=== PATIENT | male | born 1955 | race Caucasian/White ===

== ENCOUNTER 2023-04-14 03:21 | Outpatient (RCR) | payer MEDICARE, OTHER, SELFPAY ==
[2023-04-14] MEDS: Normal Saline Flush 10 ML SYR IVP (07:47)
[2023-04-14 08:04] LABS: Abs Immature Grans 0.13 10^3/uL (0.0-0.06); Absolute Basophil Count 0.07 10^3/uL (0.0-0.2); Absolute Eosinophil Count 0.63 10^3/uL (0.0-0.7); Absolute Lymphocyte Count 1.89 10^3/uL (1.2-3.4); Absolute Monocyte Count 1.19 10^3/uL (0.1-0.8); Absolute Neutrophil Count 8.06 10^3/uL (1.2-6.7); Basophils % 0.6; Eosinophils % 5.3; HCT 32.9 % (40.0-50.0); HGB 10.9 g/dL (13.5-17.5); Immature Grans % 1.1; Lymphocytes % 15.8; MCH 28.5 pg (27.0-33.0); MCHC 33.1 % (32.0-36.0); MCV 86 fL (80-95); MPV 9.2 fL (8.0-11.0); Monocytes % 9.9; Neutrophils % 67.3; Platelet Count 203 10^3/uL (130-400); RBC 3.83 10^6/uL (4.36-5.78); RDW-SD 46.4 fL; WBC 11.97 10^3/uL (4.4-10.8)
[2023-04-14 08:19] LABS: ALT 27 U/L (16-63); AST 16 U/L (15-37); Albumin 3.3 g/dL (3.4-5.0); Alkaline Phosphatase 94 U/L (46-116); Anion Gap 6.5 mmol/L (3-11); BUN 19 mg/dL (7-18); Bilirubin, Total 0.3 mg/dL (0.2-1.0); CO2 28.5 mmol/L (21.0-32.0); CREATININE 0.8 mg/dL (0.70-1.30); Calcium 8.8 mg/dL (8.5-10.1); Chloride 102 mmol/L (98-107); Glucose 119 mg/dL (74-106); Magnesium 1.7 mg/dL (1.8-2.4); Potassium 4.1 mmol/L (3.5-5.1); Sodium 137 mmol/L (136-145); Total Protein 7.3 g/dL (6.4-8.2)
== END 2023-04-14 23:59 | disposition home or self-care (01) ==
LOC: INF 03:21
PROVIDERS: PCP Family Medicine Adult Medicine; Visit Provider Family Medicine Adult Medicine
DX: C34.92 Malignant neoplasm of unspecified part of left bronchus or lung (principal); Z45.2 Encounter for adjustment and management of vascular access device
CPT/HCPCS: 36591; 80053; 83735; 85025

== ENCOUNTER 2023-05-12 02:21 | Outpatient (RCR) | payer MEDICARE, OTHER, SELFPAY ==
[2023-05-03 09:09] LABS: Absolute Basophil Count 0.02 10^3/uL (0.0-0.2); Absolute Eosinophil Count 0.07 10^3/uL (0.0-0.7); Absolute Lymphocyte Count 0.53 10^3/uL (1.2-3.4); Absolute Neutrophil Count 0.93 10^3/uL (1.2-6.7); Basophils % 0.9; HCT 30.8 % (40.0-50.0); HGB 10.6 g/dL (13.5-17.5); Immature Grans % 4.3; Lymphocytes % 22.6; MCH 29.2 pg (27.0-33.0); MCHC 34.4 % (32.0-36.0); MCV 85 fL (80-95); MPV 8.6 fL (8.0-11.0); Monocytes % 29.8; Neutrophils % 39.4; Platelet Count 166 10^3/uL (130-400); RBC 3.63 10^6/uL (4.36-5.78); RDW 14.9 % (11.8-14.1); RDW-SD 45.9 fL; WBC 2.35 10^3/uL (4.4-10.8)
[2023-05-03] MEDS: Normal Saline Flush 10 ML SYR IVP (09:20)
[2023-05-03 09:26] LABS: ALT 22 U/L (16-63); AST 14 U/L (15-37); Albumin 3.2 g/dL (3.4-5.0); Alkaline Phosphatase 79 U/L (46-116); Anion Gap 6.1 mmol/L (3-11); BUN 14 mg/dL (7-18); Bilirubin, Total 0.3 mg/dL (0.2-1.0); CO2 29.9 mmol/L (21.0-32.0); CREATININE 0.7 mg/dL (0.70-1.30); Calcium 8.9 mg/dL (8.5-10.1); Chloride 100 mmol/L (98-107); Estimated GFR 99.74 (mL/min/1.73m2); Glucose 130 mg/dL (74-106); Magnesium 1.6 mg/dL (1.8-2.4); Potassium 3.4 mmol/L (3.5-5.1); Sodium 136 mmol/L (136-145); Total Protein 7.1 g/dL (6.4-8.2)
[2023-05-03 09:34] LABS: Diff Comment Diff Reviewed; RBC Morphology Normal
[2023-05-12] MEDS: Normal Saline Flush 10 ML SYR IVP (07:48)
[2023-05-12 08:07] LABS: Abs Immature Grans 0.05 10^3/uL (0.0-0.06); Absolute Basophil Count 0.03 10^3/uL (0.0-0.2); Absolute Eosinophil Count 0.07 10^3/uL (0.0-0.7); Absolute Lymphocyte Count 0.63 10^3/uL (1.2-3.4); Absolute Monocyte Count 0.65 10^3/uL (0.1-0.8); Absolute Neutrophil Count 2.97 10^3/uL (1.2-6.7); Basophils % 0.7; Eosinophils % 1.6; HCT 31.6 % (40.0-50.0); HGB 10.6 g/dL (13.5-17.5); Immature Grans % 1.1; Lymphocytes % 14.3; MCH 29.2 pg (27.0-33.0); MCHC 33.5 % (32.0-36.0); MCV 87 fL (80-95); Monocytes % 14.8; Neutrophils % 67.5; Platelet Count 171 10^3/uL (130-400); RBC 3.63 10^6/uL (4.36-5.78); RDW 15.5 % (11.8-14.1); RDW-SD 48.9 fL
[2023-05-12 08:29] LABS: ALT 21 U/L (16-63); AST 14 U/L (15-37); Albumin 3.2 g/dL (3.4-5.0); Alkaline Phosphatase 78 U/L (46-116); Anion Gap 9.1 mmol/L (3-11); BUN 18 mg/dL (7-18); Bilirubin, Total 0.3 mg/dL (0.2-1.0); CO2 27.9 mmol/L (21.0-32.0); CREATININE 0.7 mg/dL (0.70-1.30); Calcium 8.7 mg/dL (8.5-10.1); Chloride 103 mmol/L (98-107); Estimated GFR 99.74 (mL/min/1.73m2); Glucose 148 mg/dL (74-106); Magnesium 1.6 mg/dL (1.8-2.4); Potassium 3.8 mmol/L (3.5-5.1); Sodium 140 mmol/L (136-145)
== END 2023-05-14 23:59 | disposition home or self-care (01) ==
LOC: INF 02:21
PROVIDERS: Internal Medicine Medical Oncology; PCP Family Medicine Adult Medicine; Visit Provider Family Medicine Adult Medicine
DX: C34.92 Malignant neoplasm of unspecified part of left bronchus or lung (principal); Z45.2 Encounter for adjustment and management of vascular access device
CPT/HCPCS: 36591; 80053; 83735; 85025

== ENCOUNTER 2023-06-07 04:01 | Outpatient (RCR) | payer MEDICARE, OTHER, SELFPAY ==
[2023-06-07 09:07] LABS: Abs Immature Grans 0.16 10^3/uL (0.0-0.06); Absolute Basophil Count 0.06 10^3/uL (0.0-0.2); Absolute Eosinophil Count 0.09 10^3/uL (0.0-0.7); Absolute Lymphocyte Count 1.01 10^3/uL (1.2-3.4); Absolute Monocyte Count 1.03 10^3/uL (0.1-0.8); Absolute Neutrophil Count 3.89 10^3/uL (1.2-6.7); Eosinophils % 1.4; HCT 32.5 % (40.0-50.0); HGB 11.1 g/dL (13.5-17.5); Immature Grans % 2.6; Lymphocytes % 16.2; MCH 29.8 pg (27.0-33.0); MCHC 34.2 % (32.0-36.0); MCV 87 fL (80-95); MPV 8.5 fL (8.0-11.0); Monocytes % 16.5; Neutrophils % 62.3; Platelet Count 218 10^3/uL (130-400); RBC 3.72 10^6/uL (4.36-5.78); RDW 15.8 % (11.8-14.1); RDW-SD 50.4 fL; WBC 6.24 10^3/uL (4.4-10.8)
[2023-06-07] MEDS: Normal Saline Flush 10 ML SYR IVP (09:13)
[2023-06-07 09:34] LABS: ALT 25 U/L (16-63); AST 15 U/L (15-37); Albumin 3.5 g/dL (3.4-5.0); Alkaline Phosphatase 85 U/L (46-116); Anion Gap 7.8 mmol/L (3-11); BUN 11 mg/dL (7-18); Bilirubin, Total 0.3 mg/dL (0.2-1.0); CO2 29.2 mmol/L (21.0-32.0); CREATININE 0.8 mg/dL (0.70-1.30); Calcium 9.2 mg/dL (8.5-10.1); Chloride 101 mmol/L (98-107); Glucose 103 mg/dL (74-106); Magnesium 1.7 mg/dL (1.8-2.4); Potassium 4.1 mmol/L (3.5-5.1); Sodium 138 mmol/L (136-145); Total Protein 7.5 g/dL (6.4-8.2)
== END 2023-06-14 23:59 | disposition home or self-care (01) ==
LOC: INF 04:01
PROVIDERS: PCP Family Medicine Adult Medicine; Visit Provider Family Medicine Adult Medicine
DX: C34.92 Malignant neoplasm of unspecified part of left bronchus or lung (principal); Z45.2 Encounter for adjustment and management of vascular access device
CPT/HCPCS: 36591; 80053; 83735; 85025

== ENCOUNTER 2023-09-20 09:31 | Outpatient (RCR) | payer MEDICARE, OTHER, SELFPAY ==
--- OUTSIDE RECORDS SUMMARY | 2023-09-20 09:46 | XMS_ITS | Continuity of Care Document ---
Author Name Unknown Organization [facility] Address [address] [place] [address] Care Team Providers Care Ob Tech Name Role Phone Doimnique Aparicio Primary Care Physician Encounter LTTL_DE FIN NBR [id number] Date(s): 03/08/23 - 03/08/23 [facility] [address] [place], [place] [address] Discharge Disposition: Home or Self Care Attending Physician: GUEVARA KHAN M.D. Admitting Physician: GUEVARA KHAN M.D. Allergies, Adverse Reactions, Alerts Substance Reaction Severity Status penicillins Moderate Active Assessment and Plan Future Appointments Medications citalopram 20 mg oral tablet 20 mg = 1 tab, Oral, Daily Start Date: 09/07/22 Status: Ordered hydroCHLOROthiazide 25 mg oral tablet 25 mg = 1 tab, Oral, Daily Start Date: 09/07/22 Status: Ordered ibuprofen 800 mg oral tablet 800 mg = 1 tab, Oral, TID Start Date: 09/07/22 Status: Ordered leuprolide 45 mg/6 months intramuscular injection, extended release 45 mg =, IM, every 6 mo Start Date: 09/07/22 Status: Ordered Multi Vitamin+ 1 tab, Oral, Daily Start Date: 09/07/22 Status: Ordered tamsulosin 0.4 mg oral capsule 0.8 mg = 2 cap, Oral, Daily Start Date: 09/07/22 Status: Ordered Results Laboratory List Name Date CBC w/ Diff 03/08/23 Comprehensive Metabolic Panel 03/08/23 PSA Diagnostic 03/08/23 Testosterone Level Total 03/08/23 Automated Diff 03/08/23 Most recent to oldest [Reference Range]: 1 WBC [4.8-10.8 K/mcL] 10.4 K/mcL (03/08/23 9:33 AM) RBC [4.20-6.10 Million/mcL] 5.02 Million /mcL (03/08/23 9:33 AM) Neutro Auto [42.2-75.2 %] 80.2 % *HI* (03/08/23 9:33 AM) Lymph Auto [20.5-51.1 %] 10.2 % *LOW* (03/08/23: AM) Mobile Auto [1.7-9.3 %] 8.1 % (03/08/23 9: AM) Basophil Auto [0.0-0.8 %] 0.3 % (03/08/23 9: AM) BUN [8-26 mg/dL] 12 mg/dL (03/08/23: AM) Glucose Level [74-106 mg/dL] 115 mg/dL *HI* (03/08/23 9: AM) Potassium Level [3.5-5.1 mmol/L] 3.4 mmo l/L *LOW* (03/08/23: AM) Baso Absolute [0.0-0.2 K/mcL] 0.0 K/mcL (03/08/23: AM) MCV [80.0-94.0 fL] 80.5 fL (03/08/23: AM) Testosterone Total [175-781 ng/dL] 25 ng /dL *LOW* (03/08/23 9: AM) AST [15-41 IntlUnit/L] 20 IntlUnit/L (03/08/23 9:33 AM) ALT [17-63 IntlUnit/L] 22 IntlUnit/L (03/08/23 9:33 AM) MCHC [32.0-36.0 g/dL] 35.9 g/dL (03/08/23 9: AM) Osmolality [275-295 mOsm/kg] 239 mOsm/kg *LOW* (03/08/23: AM) Sodium Level [134-143 mmol/L] 118 mmol/L 1 *CRIT* (03/08/23 9: AM) Lymph Absolute [1.2-3.4 K/mcL] 1.1 K/mcL *LOW* (03/08/23 9:33 AM) Hct [42.0-52.0 %] 40.4 % *LOW* (03/08/23: AM) Calcium Level [8.9-10.3 mg/dL] 9.6 mg/dL (03/08/23:33 AM) Mobile Absolute [0.1-0.6 K/mcL] 0.8 K/mcL *HI* (03/08/23: AM) Albumin Level [3.5-5.0 g/dL] 4.1 g/dL (03/08/23: AM) Protein Total [6.5-8.1 g/dL] 7.9 g/dL (03/08/23 9: AM) MCH [27.0-31.0 pg] 28.9 pg (03/08/23: AM) Neutro Absolute [1.4-6.5 K/mcL] 8.3 K/mc L *HI* (03/08/23 9: AM) Bilirubin Total [0.2-1.2 mg/dL] 0.6 mg/d L (03/08/23 9: AM) Hgb [14.0-18.0 g/dL] 14.5 g/dL (03/08/23 9:33 AM) Alk Phos [38-130 IntlUnit/L] 79 IntlUnit /L (03/08/23:33 AM) MPV [7.4-10.4 fL] 8.9 fL (03/08/23 9:33 AM) Platelets [130-400 K/mcL] 222 K/mcL (03/08/23:33 AM) CO2 [22-32 mmol/L] 28 mmol/L (03/08/23 9:33 AM) Eos Absolute [0.0-0.2 K/mcL] 0.1 K/mcL (03/08/23 9:33 AM) PSA Total Diagnostic [<=4.000 ng/mL] 0.0 22 ng/mL (03/08/23: AM) Chloride Level [98-111 mmol/L] 80 mmol/L *LOW* (03/08/23 9: AM) RDW-CV [11.5-14.5 %] 13.1 % (03/08/23 9:33 AM) A/G Ratio 1.1 *NA* (03/08/23 9:33 AM) BUN/Creat Ratio [8.0-20.0] 17.4 (03/08/23 9:33 AM) Globulin 3.8 *NA* (03/08/23 9:33 AM) Imm Gran Absolute 0.03 *NA* (03/08/23 9:33 AM) Imm Gran Auto [0.0-0.5 %] 0.3 % (03/08/23 9:33 AM) Creatinine Level [0.61-1.24 mg/dL] 0.69 mg/dL (03/08/23 9:33 AM) Anion Gap [3.0-12.0] 10.0 (03/08/23 9:33 AM) Eos, Auto [0.00-3.00 %] 0.90 % (03/08/23 9:33 AM) eGFR CKD-EPI [>=60 mL/min/1.73 m2] 101 m L/min/1.73 m2 (03/08/23 9:33 AM) 1Result Comment: Called & read back by Nicole Bruce_ at 1000_WR result verified by repeat analysis Social History Social History Type Response Tobacco Former tobacco user Tobacco Use:. Sex Patient Care team information Care Team Personnel Name: ILANA Rhoades Position: Physician Member Role: Primary Care Physician Address: Address: [address] [place] [address] Name: Guevara Khan MD Position: Physician Member Role: Informed Provider Address: Address: [address] [address] Care Team Related Persons Name: HELDER ECHEVERRIA
--- OUTSIDE RECORDS SUMMARY | 2023-09-20 09:46 | XMS_ITS | Continuity of Care Document ---
Author Name Unknown Organization [facility] Address [address] [place] [address] Care Team Providers Care Sports Physiologist Name Role Phone FATMATA JACKSON Primary Care Physician Encounter LTTL_ID FIN NBR [id number] Date(s): 09/07/23 - 09/07/23 [facility] [address] [place] [address]- [place] Discharge Disposition: Home or Self Care Attending Physician: Guevara Ibarra MD Admitting Physician: Guevara Ibarra MD Referring Physician: XIOMARA BROWN APRN Allergies, Adverse Reactions, Alerts Substance Reaction Severity Status penicillins 1 Anaphylactic reaction Severe Activ e 1pt reprots throat closing long time ago but allergy confirmed with allergy testing about 20 years ago. Assessment and Plan Future Appointments Medications amLODIPine 10 mg oral tablet 10 mg = 1 tab, Oral, Daily, # 30 tab, 0 Refill(s) Start Date: 07/13/23 Status: Ordered hydrOXYzine pamoate 25 mg oral capsule 25 mg = 1 cap, Oral, every night at bedtime, 0 Refill(s) Start Date: 07/13/23 Status: Ordered losartan 100 mg oral tablet 50 mg =, Oral, Daily, 0 Refill(s) Start Date: 06/23/23 Status: Ordered Multi Vitamin+ 1 tab, Oral, Daily Start Date: 09/07/22 Status: Ordered polyethylene glycol 3350 oral powder for reconstitution 17 g, Oral, Daily, PRN constipation, # 510 g, 0 Refill(s) Start Date: 07/13/23 Status: Ordered potassium chloride 10 mEq oral capsule, extended release 20 mEq = 2 cap, Oral, Daily Start Date: 09/07/23 Status: Ordered tamsulosin 0.4 mg oral capsule 0.8 mg = 2 cap, Oral, Daily Start Date: 09/07/22 Status: Ordered Problem List Condition Confirmation Course Effective Dates Status Health St atus Informant Abdominal discomfort Confirmed Active CA - Cancer of prostate 1 Confirmed Active h/o Cervical fracture Confirmed Active Chemotherapy Confirmed Active Constipation Confirmed Active Depression Confirmed Active Hemoptysis Confirmed Active Hydrocele Confirmed Active Hyponatremia Confirmed Active Dyspepsia Confirmed Active Left inguinal hernia Confirmed Active Anorexia Confirmed Active Nausea Confirmed Active Perianal abscess Confirmed Active Radiation Confirmed Active Shingles Confirmed Active Small cell lung cancer Confirmed Active 1metastatic recurrence 2018 Procedures Procedure Date Related Diagnosis Body Site Status Bronchoscopy 2022 Completed Right hydrocelectomy 03/19/15 Comp leted Incision of perianal abscess 2014 Completed Repair of left inguinal hernia 06/28/14 Completed Arthroscopy of shoulder 1 2000 Completed Cervical [id number] 1990 Com pleted Arthroscopy of knee 2 Com pleted 1left 2right Vital Signs Most recent to oldest [Reference Range]: 1 Temperature Temporal Artery [36-38 Deg C ] 37 Deg C (09/07/23 8:29 AM) Peripheral Pulse Rate [60-100 bpm] 108 b pm *HI* (09/07/23 8:29 AM) Respiratory Rate [12-24 br/min] 20 br/mi n (09/07/23 8:29 AM) Blood Pressure [90-140/60-90 mmHg] 145/7 7mmHg *HI* (09/07/23 8:29 AM) Mean Arterial Pressure, Cuff [65-140 mmH g] 100 mmHg (09/07/23 8:29 AM) Social History Social History Type Response Tobacco Former tobacco user Tobacco Use:. Sex Patient Care team information Care Team Personnel Name: FATMATA JACKSON Position: No Access Member Role: Primary Care Physician Address: Address: [address] [place] [id number]- Name: Guevara Ibarra MD Position: Physician Member Role: Informed Provider Address: Address: [address] [address]- Care Team Related Persons Name: HELDER ECHEVERRIA
--- OUTSIDE RECORDS SUMMARY | 2023-09-20 09:46 | XMS_ITS | Patient Health Record ---
Author Name Unknown Organization [facility] Address [address] [place] [address] Care Team Providers Care Roto Rooter Operator Name Role Phone SANJEEV CARVER Primary Care Provider [phone] FATMATA MARIE Unavailable [phone] DAVON ALVARADO Unavailable [phone] ALLERGIES Allergen (clinical drug ingredient) Drug/Non Drug Allergy documented on EMR Reaction Allergy Type Onset Date Status Penicillin G Benzathine Unknown Drug Allergy Active RESULTS Component Value Reference Range Notes CBC (INCLUDES DIFF/PLT) Reviewed date:05/31/2023 11:00:09 AM Interpretation: Performing Lab:NL1, [facility], [address] [place] [address], [phone] Tamir Licona M.D. Notes/Report: Received Date: [id number] WHITE BLOOD CELL COUNT 1.7 3.8-10.8 Thousand/ uL RED BLOOD CELL COUNT 3.13 4.20-5.80 Million/uL HEMOGLOBIN 9.3 13.2-17.1 g/dL HEMATOCRIT 28.3 38.5-50.0 % MCV 90.4 80.0-100.0 fL MCH 29.7 27.0-33.0 pg MCHC 32.9 32.0-36.0 g/dL RDW 16.3 11.0-15.0 % PLATELET COUNT 93 140-400 Thousand/uL MPV 10.2 7.5-12.5 fL ABSOLUTE NEUTROPHILS 680 7950-0503 cells/uL ABSOLUTE LYMPHOCYTES 524 217-6573 cells/uL ABSOLUTE MONOCYTES 350 200-950 cells/uL ABSOLUTE EOSINOPHILS 90 15-500 cells/uL ABSOLUTE BASOPHILS 10 0-200 cells/uL NEUTROPHILS 40 LYMPHOCYTES 33.5 MONOCYTES 20.6 EOSINOPHILS 5.3 BASOPHILS 0.6 COMPREHENSIVE METABOLIC PANE L Reviewed date:05/31/2023 08:47:08 AM Interpretation: Performing Lab:NL1, [facility], [address] [place] [address], [phone] Tamir Licona M.D. Notes/Report: Received Date: [id number] GLUCOSE 104 65-99 mg/dL Fasting reference interval For someone without known diabetes, a glucose value between 100 and 125 mg/dL is consistent with prediabetes and should be confirmed with a follow-up test. UREA NITROGEN (BUN) 17 7-25 mg/dL CREATININE 0.78 0.70-1.35 mg/dL EGFR 97 > OR = 60 mL/min/1.73m2 The eGFR is based on the CKD-EPI 2020 equation. To calculate the new eGFR from a previous Creatinine or Cystatin C result, go to https://www.kidney.org /professionals/ kdoqi/gfr%5Fcalculator BUN/CREATININE RATIO NOT APPLICABLE 6-22 (calc) SODIUM 136 135-146 mmol/L POTASSIUM 4.0 3.5-5.3 mmol/L CHLORIDE 102 98-110 mmol/L CARBON DIOXIDE 25 20-32 mmol/L CALCIUM 9.1 8.6-10.3 mg/dL PROTEIN, TOTAL 6.6 6.1-8.1 g/dL ALBUMIN 3.7 3.6-5.1 g/dL GLOBULIN 2.9 1.9-3.7 g/dL (calc) ALBUMIN/GLOBULIN RATIO 1.3 1.0-2.5 (calc) BILIRUBIN, TOTAL 0.3 0.2-1.2 mg/dL ALKALINE PHOSPHATASE 65 35-144 U/L AST 12 10-35 U/L ALT 13 9-46 U/L COMPREHENSIVE METABOLIC PANE L Reviewed date:03/30/2023 08:47:29 AM Interpretation: Performing Lab:NL1, [facility], [address] [place] [address], [id number] Tamir Licona M.D. Notes/Report: Received Date: [id number] GLUCOSE 94 65-99 mg/dL Fasting reference interval UREA NITROGEN (BUN) 22 7-25 mg/dL CREATININE 0.88 0.70-1.35 mg/dL Verified by repeat analysis. EGFR 93 > OR = 60 mL/min/1.73m2 The eGFR is based on the CKD-EPI 2020 equation. To calculate the new eGFR from a previous Creatinine or Cystatin C result, go to https://www.kidney.org /professionals/ kdoqi/gfr%5Fcalculator BUN/CREATININE RATIO NOT APPLICABLE 6-22 (calc) SODIUM 136 135-146 mmol/L POTASSIUM 3.7 3.5-5.3 mmol/L CHLORIDE 98 98-110 mmol/L CARBON DIOXIDE 27 20-32 mmol/L CALCIUM 9.6 8.6-10.3 mg/dL PROTEIN, TOTAL 6.4 6.1-8.1 g/dL ALBUMIN 3.7 3.6-5.1 g/dL GLOBULIN 2.7 1.9-3.7 g/dL (calc) ALBUMIN/GLOBULIN RATIO 1.4 1.0-2.5 (calc) BILIRUBIN, TOTAL 0.4 0.2-1.2 mg/dL ALKALINE PHOSPHATASE 66 35-144 U/L AST 12 10-35 U/L Verified by rep eat analysis. ALT 15 9-46 U/L REASON FOR REFERRAL No Information MEDICATIONS Medication SIG (Take, Route, Frequency, Duration) Notes Start Date End Date Status Acetaminophen 325 MG 2 tablets as needed Orally every 6 hrs Active Mesalamine 1.2 GM 4 tablets with a jacqui l Orally Once a day Active Losartan Potassium 100 MG 1/2 tab Orally Once a day 03/17/2023 Active Tamsulosin HCl 0.4 MG Take 2 capsules by mouth once daily for 90 Active Theragran-M - 1 tablet Orally Once a day Active hydrOXYzine Pamoate 25 MG TAKE 1 CAPSULE BY MOUTH ONCE DAILY AT BEDTIME NEEDED for 30 Active amLODIPine Besylate 10 MG 1 tablet Orall y Once a day 03/17/2023 Active predniSONE 20 MG 2 tabs x 7 days, the n 1.5 tabs x 7 days, then 1 tab x 7 days, then 0.5 tab x 7 days. Orally Once a day 09/03/2023 09/30/2023 Not-Taking Leuprolide Acetate (3 Month) 22.5 MG as directed Subcutaneous Active Calcium Carbonate Antacid 500 MG 1 tablet Orally Two times a day Active Senna 8.6 MG 2 tablets at bedtime as needed Orally Once a day for 30 day(s) Not-Taking MiraLax 17 GM/SCOOP 1 scoop mixed with 8 ounces of fluid Orally Once a day Not-Taking Prochlorperazine Maleate 5 MG 1 tablet as needed for nausea Orally every 6 hours Not-Taking Vistaril 25 MG 1 capsule at bedtime as needed Orally Once a day Active IMMUNIZATIONS Vaccine Route Administration Date Status Comme nts Zostavax-Adult Unknown 04/14/2015 Administered given at [facility] Tdap-Adult Unknown 01/14/2010 Administered Pneumococcal 23-Adult IM Intramuscular 03/18/2015 Administered SOCIAL HISTORY Tobacco Use: Social History Observation Description Date Details (start date - stop date) Former Smoker NA - NA Sex Assigned At : Social History Observation Description Sex Assigned At Unknown Tobacco Use/Smoking Question Answer Notes Are you a former smoker Additional Findings: Tobacco User Moderate cigar ette smoker (10-19 cigs/day) Alcohol Screen Question Answer Notes Did you have a drink containing alcohol in the p ast year? 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) Active confirmed Syndrome of inappropriate secretion of antidiuretic hormone (94444721) Problem Mixed hyperlipidemia (E78.2) Active confirmed Mixed hyperlipidemia (604350750) Problem Nicotine dependence, unspecified, uncomplicated (F17.200) Active confirmed Tobacco user (965969352) Problem Generalized anxiety disorder (F41.1) Active confirmed Generalized anxiety disorder (23399633) Problem Essential (primary) hypertension (I10) Active confirmed Essential hypertension (76391751) Problem Acute recurrent sinusitis, unspecified (J01.91) Active confirmed Acute sinusitis (58299917) Problem Constipation, unspecified (K59.00) Active confirmed Constipation (87954298) Problem Depression, recurrent (F33.9) Active confirmed Recurrent major depression (20893410) VITAL SIGNS Heart Rate 105 /min 09/08/2023 Temperature 97.3 degrees Fahrenheit 09/08/2023 Respiratory Rate 16 /min 09/08/2023 Blood pressure diastolic 59 mm Hg 09/08/2023 Oximetry 99 % 09/08/2023 Height 70 in 09/08/2023 Blood pressure systolic 118 mm Hg 09/08/2023 Weight 187 lbs 09/08/2023 BMI 26.83 kg/m2 09/08/2023 Encounters Encounter Location Date Provider Diagnosis [address] [address] 03/08/2023 MIRNO PASQUALI Acute recurrent sinusitis, unspecified J01.[address] [address] 03/22/2023 MIRNO PASQUALI Malignant neoplasm o f lower lobe, left bronchus or lung C34.32 ; Depression, recurrent F33.9 ; Generalized anxiety disorder F41.1 and Syndrome of inappropriate secretion of antidiuretic hormone E22.[address] [address] 04/13/2023 BRODYNO PASQUALI [address] [address] 04/22/2023 FATMATA MARIE [address] [address] 04/29/2023 FATMATA MARIE [address] [address] 05/27/2023 FATMATA MARIE Dizziness and giddin ess R42 ; Essential (primary) hypertension I10 ; Malignant neoplasm of lower lobe, left bronchus or lung C34.32 ; Malignant neoplasm of prostate C61 and Abnormal electrocardiogram [ECG] [EKG] R94.[address] [address] 07/08/2023 FATMATA MARIE Malignant neoplasm o f prostate C61 ; Malignant neoplasm of lower lobe, left bronchus or lung C34.32 ; Abnormal electrocardiogram [ECG] [EKG] R94.31 and Dizziness and giddiness R42 [address] [address] 07/21/2023 [facility] [address] [place] [address] 07/26/2023 DAVON ALVARADO Constipation, unspecified K59.00 [facility] [address] [facility] [address] 09/01/2023 FATMATA MARIE [facility] [address] [place] [address] 09/08/2023 FATMATA MARIE Essential (primary) hypertension I10 ; Depression, recurrent F33.9 ; Generalized anxiety disorder F41.1 ; Malignant neoplasm of prostate C61 and Noninfective gastroenteritis and colitis, unspecified K52.9 ASSESSMENTS Encounter Date Diagnosis Assessment Notes Treatment Notes Treatment Clinical Notes 05/27/2023 Essential (primary) hypertension (ICD-10 - I10) Will decrease to 1/2 tab and see if helps. HE will monitor BP at home 05/27/2023 Dizziness and giddin ess (ICD-10 - R42) Can be numerous reasons for this since pt has 2 metastatic cancers. Will check labs and EKG today and go from there. We will decrease Losartan since I feel dehydration is contributing to symptoms and encouraged pt to start daily electrolyte fluids 07/08/2023 Malignant neoplasm o f lower lobe, left bronchus or lung (ICD-10 - C34.32) 07/08/2023 Malignant neoplasm o f prostate (ICD-10 - C61) On Lupron which can cause prolonged QT. Discussed referral to cardiology which pt refused. He states he will talk with his urologist and oncologist-ramific ations of prolonged QT including arrhythmia and -pt understood. Given copies of old EKG and the two newest showing the prolonged QT to show to oncology 09/08/2023 Essential (primary) hypertension (ICD-10 - I10) Looks good today. Feel pt's dizziness related to electrolytes and low fluid intake. Will start gatorade, Watch BP at home and keep f/up for labs with oncology 09/08/2023 Depression, recurren t (ICD-10 - F33.9) Advised pt and that celexa can also prolong QT so we do not want to add back right now. Discussed getting him in with [place] [facility] [place] [facility] [place] he refuses adamately today 07/26/2023 Constipation, unspecified (ICD-10 - K59.00) The rectal vault was clear, so is no indication for continued use of suppositories or enema. He percussed out tympanic through the transverse colon as well as the descending colon. I think we needed the tach is from the top I advised him he can increase his MiraLax one cap full q. d. morning 2-3 cap fulls a day one in morning noon and night also increase the Senokot tablets from 2 tablets at night to 2 tablets b.i.d. 03/22/2023 Malignant neoplasm o f lower lobe, left bronchus or lung (ICD-10 - C34.32) 03/22/2023 Depression, recurren t (ICD-10 - F33.9) 03/08/2023 Acute recurrent sinusitis, unspecified (ICD-10 - J01.91) 03/22/2023 Generalized anxiety disorder (ICD-10 - F41.1) will decrease celexea to 10 mg and add vistaril withthe thought of switching to buspar after the celexea is done. 09/08/2023 Generalized anxiety disorder (ICD-10 - F41.1) 07/08/2023 Abnormal electrocardiogram [ECG] [EKG] (ICD-10 - R94.31) 05/27/2023 Malignant neoplasm o f lower lobe, left bronchus or lung (ICD-10 - C34.32) Will check labs today and will forward these to oncology as well 05/27/2023 Malignant neoplasm o f prostate (ICD-10 - C61) 09/08/2023 Malignant neoplasm o f prostate (ICD-10 - C61) Followed by oncology 07/08/2023 Dizziness and giddin ess (ICD-10 - R42) Has resolved with increased hydration 03/22/2023 Syndrome of inappropriate secretion of antidiuretic hormone (ICD-10 - E22.2) 05/27/2023 Abnormal electrocardiogram [ECG] [EKG] (ICD-10 - R94.31) Prolonged QT on EKG. Not related to any meds I have here. Unsure if his chemo may be adding to this. Copy given to to discuss with oncology. Will monitor 09/08/2023 Noninfective gastroenteritis and colitis, unspecified (ICD-10 - K52.9) Pt doing better. Discussed need to get in enought fluid and keeping electrolytes up. Keep f/up with GI. Will not do labs today since they were done by oncology yesterday and he has f/up labs scheduled PLAN OF TREATMENT Pending Test Test Name Order Date Electrocardiogram (EKG) 07/08/2023 Electrocardiogram (EKG) 05/27/2023 Electrocardiogram (EKG) 03/23/2016 Electrocardiogram (EKG) 03/18/2015 Insurance Providers Payer Name Payer Address Payer Phone Subscriber Number Group Number Insured Name Patient Relationship to Insured Coverage Start Date Coverage End Date [employer] [address] [place] [id number] Diogenes Nava Self - patient is the insured [address] [place] [phone] [id number] Diogenes Nava Self - patient is the insured MEDICAL (GENERAL) HISTORY Medical History History ICD Code prostate cancer BPH depression hyperlipidemia hypertension 09-01-2023 colonoscopy Surgical History Surgery Date(Month/Year) cervical fracture right knee arthroscopy shoulder arthroscopy Hernia Repair 06/18/[address]oscopy air way examination, EBUS-TBNA (4 sites), EBUS-transbronchial core biopsy (1 site) 03/11/2023 Bronchoscopy, endobronchial biopsies, ti ssue/tumor debulking 07/27/2023 colonoscopy 09/01/2023 Hospitalization History Reason Date(Month/Year[place] [facility] [place] 08/30/2023- 3
--- OUTSIDE RECORDS SUMMARY | 2023-09-20 09:46 | XMS_ITS | Continuity of Care Document ---
Author Name Unknown Organization [facility] Ambulatory Clinics Address [address] [place] [address] Care Team Providers Care Tourist Information Assistant Name Role Phone FATMATA JACKSON Primary Care Physician [phone] Encounter [facility] FIN NBR [id number] Date(s): 08/26/23 - 08/26/23 [facility] Ambulatory Clinics [address] [place] [address] [place] Encounter Diagnosis Nausea(Discharge Diagnosis) - 08/26/23 Dyspepsia(Discharge Diagnosis) - 08/26/23 Abdominal discomfort(Discharge Diagnosis) - 08/26/23 Anorexia(Discharge Diagnosis) - 08/26/23 Constipation(Discharge Diagnosis) - 08/26/23 Discharge Disposition: Home or Self Care Attending Physician: Janeth Martinez APRN Referring Physician: JAYSON CHERY, SACHIN Allergies, Adverse Reactions, Alerts Substance Reaction Severity Status penicillins 1 Anaphylactic reaction Severe Activ e 1pt reprots throat closing long time ago but allergy confirmed with allergy testing about 20 years ago. Assessment and Plan Future Appointments Functional Status 08/26/23 Other exposure to Infectious Disease Non e Medications amLODIPine 10 mg oral tablet 10 [...] Oral, Daily Start Date: 09/07/22 Status: Ordered omeprazole 40 mg oral delayed release capsule 40 mg = 1 cap, Oral, Daily, takes 20 mg twice daily, # 30 cap, 0 Refill(s) Start Date: 07/13/23 Status: Ordered Pepto-Bismol 262 mg oral tablet, chewable 524 mg = 2 tab, Chewed, every 30 min, PRN as needed for dyspepsia, not to exceed 8 tablets/day, # 30 tab, 0 Refill(s) Start Date: 08/26/23 Status: Ordered polyethylene glycol 3350 oral powder for reconstitution 17 g, Oral, Daily, PRN constipation, # 510 g, 0 Refill(s) Start Date: 07/13/23 Status: Ordered tamsulosin 0.4 mg oral capsule [...] inguinal hernia 06/28/14 Completed Arthroscopy of shoulder 2000 Completed Cervical [id number] 1990 Com pleted Arthroscopy of knee 2 Com pleted 1left 2right Vital Signs Most recent to oldest [Reference Range]: 1 Temperature Temporal Artery [36-38 Deg C ] 35.9 Deg C *LOW* (08/26/23 2:58 PM) Apical Heart Rate [60-100 bpm] 69 bpm (08/26/23 2:58 PM) Blood Pressure [90-140/60-90 mmHg] 132/8 0mmHg (08/26/23 2:58 PM) Weight 87.0 kg (08/26/23 2:58 PM) Weight Measured (lbs) 191.802 lb (08/26/23 2:58 PM) Winters Body Weight Calculated 70.7 kg (08/26/23 2:58 PM) Height 175.26 cm (08/26/23 2:58 PM) Height/Length Measured (inches) 69 inch (08/26/23 2:58 PM) BSA Measured 2.06 m2 (08/26/23 2:58 PM) Body Mass Index 28.32 kg/m2 (08/26/23 2:58 PM) Social History Social History Type Response Tobacco Former tobacco user Tobacco Use:. Sex Physician Outpatient Note * Janeth Martinez APRN: PERFORM Event Display: Office Clinic Note Physician Authored Date: [id number] RADHA ECHEVERRIA :1955 Age:68 years Sex:Male Visit Date:08/26/2023 Primary Care Physician: FATMATA JACKSON Chief Complaint Stomach pain and GERD History of Present Illness Patient is a 68-year-old??male here today at the request of BERONICA Peters??for??stomach painand GERD. ??This is an initial consult.?? Patient has an extensive medical history including??prostate cancer in 2015 with??recurrence with??metastases in 2019.?? He was diagnosed in 2022 with??limited??stage??small cell??lung cancer??with a mass on his??subclavian vein??on the right side of his neck.?? He has undergone??treatments in the last??5 months??with chemotherapy and radiation (to chest and neck).?? During the course of this time and since??he has had nausea, decreased appetite and weight loss that has now stabilized. ??He has dyspepsia with certain foods relieved with Tums. ??He knows which sugary foods to avoid.?? He was having his main symptoms are nausea.?? He is also had some constipation??and occasional diarrhea??that is also accompanied with abdominal cramping.?? He was taking??Zofran for nausea which caused constipation. ??He is eating??more recently and constipation isimproved. ??He is using MiraLAX and fiber supplement??daily with relief.?? He is on??Prilosec??milligrams twice daily??with ongoing symptoms??of nausea. ??He has had no vomiting.?? Denies melena or hematochezia. ??Denies any dysphagia or globus sensation. ?? 07/05/2023 CBC showed RBC 3.86, hemoglobin 11.6 and hematocrit 34.9.?? Complete metabolic panel normal. ?? He has had no prior EGD or colonoscopy. ?? He is accompanied today by his . ?? Patient will be leaving in 2 weeks for [place]??for the next 6 months. Review of Systems General: Denies malaise or fatigue. HEENT: Denies globus sensation or dysphagia. Respiratory: Denies shortness of breath, cough, or wheeze. Cardiovascular: Denies chest pain, palpitations, lightheadedness, dizziness, syncope or peripheral edema. ?? Abdomen:??Complains of dyspepsia, nausea, abdominal??discomfort,??and diminished appetite. ??Constipation has improved. ??Denies any diarrhea, melena or hematochezia. Skin: Denies rashes or lesions. Neurological: Denies any problems with gait or balance. Physical Exam Vitals & Measurements T:??35.9?C ??(Temporal Artery)?? HR:??69??(Apical)?? BP:??132/80?? SpO2:??99%?? HT:??175.26??cm?? WT:??87.0??kg?? BMI:??28.32?? BSA:??2.06?? General: Well-nourished well-developed??male??in no acute distress. HEENT: Head is normocephalic, trachea midline, and no cervical lymphadenopathy. Respiratory: Respirations are even and unlabored. ??Lungs are clear to auscultation. Cardiovascular: Regular rate and rhythm with S1 and S2. Abdomen: Positive bowel sounds x4 quadrants, no masses, no guarding, no tenderness. ??No hepatosplenomegaly. ??Abdomen is soft. Skin: Warm, dry, and pink. Neurological: Alert and oriented x3, speech is clear and gait is steady. Psychological: Pleasant, calm and cooperative. Assessment/Plan 1.??Nausea??R11.0 Patient with nausea, dyspepsia,??and anorexia not relieved with??omeprazole 20 mg twice daily??or??Zofran. ??He is status postchemotherapy and radiation??to his??neck and chest.?? Schedule EGD withinthe next 2 weeks before patient departs for [place]??to assess for mucosal injury, inflammation, H.pylori infection??and celiac disease.?? We will arrange telemetry??health visit following appointment to discuss findings and make further??medications. 2.??Dyspepsia??R10.13 As??above.?? Discussed reflux triggering foods and beverages to avoid, to avoid eating clears before bedtime and eat small frequent meals. 3.??Abdominal discomfort??R10.9 As above. 4.??Anorexia??R63.0 As above. ??Encourage small frequent meals. 5.??Constipation??K59.00 MiraLAX with fiber supplement??daily.?? Encouraged??to 3 L of fluid daily.?? Patient declines colonoscopy as his feels his bowel symptoms are improved. ??He has never had a colonoscopy.?? In the future consider colonoscopy for colon cancer screening. Voice recognition software utilized which may result in minor gold wheel blocker and polisher error. Problem List/Past Medical History Ongoing Abdominal discomfort Anorexia CA - Cancer of prostate Chemotherapy Constipation Depression Dyspepsia h/o Cervical fracture Hemoptysis Hydrocele Hyponatremia Left inguinal hernia Nausea Perianal abscess Radiation Shingles Small cell lung cancer Historical No qualifying data Procedure/Surgical History ???Bronchoscopy (2022)???Right hydrocelectomy (03/20/2015)???Incision of perianal abscess (2014)???Repair of left inguinal hernia (06/29/2014)???Arthroscopy of shoulder (2000)???Cervical [id number] (1990)???Arthroscopy of knee Medications amLODIPine 10 mg oral tablet, 10 mg= 1 tab, Oral, Daily hydrOXYzine pamoate 25 mg oral capsule, 25 mg= 1 cap, Oral, every night at bedtime losartan 100 mg oral tablet, 50 mg, Oral, Daily Multi Vitamin+, 1 tab, Oral, Daily omeprazole 40 mg oral delayed release capsule, 40 mg= 1 cap, Oral, Daily Pepto-Bismol 262 mg oral tablet, chewable, 524 mg= 2 tab, Chewed, every 30 min, PRN polyethylene glycol 3350 oral powder for reconstitution, 17 g, Oral, Daily, PRN tamsulosin 0.4 mg oral capsule, 0.8 mg= 2 cap, Oral, Daily Allergies penicillins??(Anaphylactic reaction) Social History Alcohol Current, Beer- Comments: 3 beers per week Electronic Cigarette/Vaping Electronic Cigarette Use: Never. 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 Home/Environment Lives with Spouse. Living situation: Home/Independent. Substance Use Never Tobacco Former tobacco user Tobacco Use:. Family History Breast cancer: Sister. Cirrhosis of liver: Brother. Lung cancer: Mother and Grandmother (M). Prostate cancer: Brother. Family Member(s): ?? SISTER, at age: Unknown. Cause of : Electronically Signed on 08/26/23 08:03 PM Janeth Martinez APRN Patient Care team information Care Team Personnel Name: FATMATA JACKSON Position: No Access Member Role: Primary Care Physician Address: Address: [address] [place] [id number]- Name: Guevara Ibarra MD Position: Physician Member Role: Informed Provider Address: Address: [address] [address] Care Team Related Persons Name: HELDER ECHEVERRIA
--- OUTSIDE RECORDS SUMMARY | 2023-09-20 09:46 | XMS_ITS | Continuity of Care Document ---
Author Name Unknown Organization [facility] Address [address] [place] [address] Care Team Providers Care Practice Support Specialist Name Role Phone FATMATA JACKSON Primary Care Physician Encounter [facility] FIN NBR [id number] Date(s): 09/06/23 - 09/06/23 [facility] [address] [place] [address]- [place] Discharge Disposition: Home or Self Care Attending Physician: BILL CHERY ([facility]GUEVARA Admitting Physician: BILL CHERY ([facility]), GUEVARA Referring Physician: FATMATA JACKSON Allergies, Adverse Reactions, Alerts Substance Reaction Severity [...] Arthroscopy of shoulder 1 2000 Completed Cervical [id number] 1990 Com pleted Arthroscopy of knee 2 Com pleted 1left 2right Results Laboratory List Name Date .Manual Differential (LTTL) 09/06/23 CBC w/ Diff 09/06/23 Comprehensive Metabolic Panel 09/06/23 PSA Diagnostic 09/06/23 Testosterone Level Total 09/06/23 Most recent to oldest [Reference Range]: 1 WBC [4.8-10.8 K/mcL] 8.8 K/mcL (09/06/23 10:02 AM) RBC [4.70-6.10 Million/mcL] 4.56 Million /mcL *LOW* (09/06/23 10:02 AM) Segs Man 78 *NA* (09/06/23 10:02 AM) Lymph Man [20.5-51.1 %] 10.0 % *LOW* (09/06/23 10:02 AM) Henry Man [1.7-9.3 %] 4.0 % (09/06/23 10:02 AM) Eos Man [0.00-3.00 %] 1.00 % (09/06/23 10:02 AM) BUN [8-26 mg/dL] 17 mg/dL (09/06/23 10:02 AM) Glucose Level [74-106 mg/dL] 109 mg/dL *HI* (09/06/23 10:02 AM) Lavina Man 3 % *NA* (09/06/23 10:02 AM) Lymph, Atyp Man 1 % *NA* (09/06/23 10:02 AM) Potassium Level [3.5-5.1 mmol/L] 2.5 mmo l/L 1 *CRIT* (09/06/23 10:02 AM) MCV [80.0-94.0 fL] 82.2 fL (09/06/23 10:02 AM) RBC Morph [Normal] Abnormal *ABN* (09/06/23 10:02 AM) Testosterone Total [175-781 ng/dL] <10 n g/dL *LOW* (09/06/23 10: AM) AST [15-41 IntlUnit/L] 29 IntlUnit/L (09/06/23 10:02 AM) ALT [17-63 IntlUnit/L] 51 IntlUnit/L (09/06/23 10: AM) MCHC [32.0-37.0 g/dL] 32.5 g/dL (09/06/23 10:02 AM) Osmolality [275-295 mOsm/kg] 270 mOsm/kg *LOW* (09/06/23 10: AM) Sodium Level [134-143 mmol/L] 134 mmol/L (09/06/23 10:02 AM) Myelo Man 1 % *NA* (09/06/23 10: AM) Hct [42.0-52.0 %] 37.5 % *LOW* (09/06/23 10: AM) Hypochromia 1+ *ABN* (09/06/23 10: AM) Calcium Level [8.9-10.3 mg/dL] 9.0 mg/dL (09/06/23 10: AM) Albumin Level [3.5-5.0 g/dL] 3.5 g/dL (09/06/23 10:02 AM) Protein Total [6.5-8.1 g/dL] 7.1 g/dL (09/06/23 10:02 AM) MCH [27.0-31.0 pg] 26.8 pg *LOW* (09/06/23 10: AM) Bilirubin Total [0.2-1.2 mg/dL] 0.5 mg/d L (09/06/23 10:02 AM) Hgb [14.0-18.0 g/dL] 12.2 g/dL *LOW* (09/06/23 10:02 AM) Alk Phos [38-130 IntlUnit/L] 58 IntlUnit /L (09/06/23 10:02 AM) MPV [7.4-10.4 fL] 8.9 fL (09/06/23 10:02 AM) Band Man 2 % *NA* (09/06/23 10:02 AM) Platelets [130-400 K/mcL] 215 K/mcL (09/06/23 10:02 AM) CO2 [22-32 mmol/L] 28 mmol/L (09/06/23 10:02 AM) PSA Total Diagnostic [<=4.000 ng/mL] <0. 008 ng/mL 2 (09/06/23 10:02 AM) Chloride Level [98-111 mmol/L] 94 mmol/L *LOW* (09/06/23 10:02 AM) RDW-CV [11.5-14.5 %] 15.1 % *HI* (09/06/23 10:02 AM) A/G Ratio [1.0-2.5 g/dL] 1.0 g/dL (09/06/23 10:02 AM) BUN/Creat Ratio [8.0-20.0] 19.8 (09/06/23 10:02 AM) Globulin [2.3-3.5 g/dL] 3.6 g/dL *HI* (09/06/23 10:02 AM) Slide Review Man Diff (09/06/23 10:02 AM) Abs Baso Man [0.0-0.2 K/mcL] 0.0 K/mcL (09/06/23 10:02 AM) Abs Eos Man [0.0-0.2 K/mcL] 0.1 K/mcL (09/06/23 10:02 AM) Abs Lymph Man [1.2-3.4 K/mcL] 0.9 K/mcL *LOW* (09/06/23 10:02 AM) Abs Henry Man [0.1-0.6 K/mcL] 0.4 K/mcL (09/06/23 10:02 AM) Abs Neut Man [1.4-6.5 K/mcL] 7.0 K/mcL *HI* (09/06/23 10:02 AM) Creatinine Level [0.61-1.24 mg/dL] 0.86 mg/dL (09/06/23 10:02 AM) Plt Estimation Normal (09/06/23 10:02 AM) Anion Gap [3.0-12.0] 12.0 (09/06/23 10:02 AM) Baso Man [0.0-0.8 %] 0.0 % (09/06/23 10:02 AM) eGFR CKD-EPI [>=60 mL/min/1.73 m2] 94 mL /min/1.73 m2 (09/06/23 10:02 AM) 1Result Comment: Called & read back by Mariela Rousseau Onco at 09/06/2023 11:21:24 EDT Results verified by repeat analysis. 2Interpretive Data: The concentration of Prostate specific antigen determined from different manufactures and assay methods will vary due to differences in the method and reagent specificity. Values obtained by different methods cannot be used interchangeably and may not be comparable. This is a [employer]??paramagnetic particle, chemiluminescent immunoassay. Social History Social History Type Response Tobacco Former tobacco user Tobacco Use:. Sex Patient Care team information Care Team Personnel Name: FATMATA JACKSON Position: No Access Member Role: Primary Care Physician Address: Address: [address] [place] [id number]- Name: Guevara Ibarra MD Position: Physician Member Role: Informed Provider Address: Address: [address] [address] Care Team Related Persons Name: HELDER ECHEVERRIA Address: Home
--- OUTSIDE RECORDS SUMMARY | 2023-09-20 09:46 | XMS_ITS | Continuity of Care Document ---
Author Name Unknown Organization [facility] Address [address] [place] [address] Encounter [facility]_[place] FIN NBR [id number] Date(s): 09/02/22 - 09/02/22 [facility] [address] [place], [place] [address] Discharge Disposition: Home or Self Care Attending Physician: VERONA KHAN Admitting Physician: VERONA KHAN Allergies, Adverse Reactions, Alerts No Known Medication Allergies Assessment and Plan Future Appointments Results Laboratory List Name Date Automated Diff 09/02/22 CBC w/ Diff 09/02/22 Comprehensive Metabolic Panel 09/02/22 PSA Diagnostic 09/02/22 Testosterone Level Total 09/02/22 Most recent to oldest [Reference Range]: 1 WBC [4.8-10.8 K/mcL] 9.9 K/mcL (09/02/22 11:09 AM) RBC [4.20-6.10 Million/mcL] 5.07 Million /mcL (09/02/22 11:09 AM) Neutro Auto [42.2-75.2 %] 62.3 % (09/02/22 11:09 AM) Lymph Auto [20.5-51.1 %] 24.6 % (09/02/22 11:09 AM) Trimble Auto [1.7-9.3 %] 8.6 % (09/02/22 11:09 AM) Basophil Auto [0.0-0.2 %] 0.8 % *HI* (09/02/22 11:09 AM) BUN [8-26 mg/dL] 26 mg/dL (09/02/22 11:09 AM) Glucose Level [74-106 mg/dL] 98 mg/dL (09/02/22 11:09 AM) Potassium Level [3.5-5.1 mmol/L] 4.0 mmo l/L (09/02/22 11:09 AM) Baso Absolute [0.0-0.2 K/mcL] 0.1 K/mcL (09/02/22 1109 AM) MCV [80.0-99.0 fL] 89.5 fL (09/02/22 11:09 AM) Testosterone Total 24.8 *NA* (09/02/22 11:09 AM) AST [15-41 IntlUnit/L] 19 IntlUnit/L (09/02/22 11:09 AM) ALT [17-63 IntlUnit/L] 21 IntlUnit/L (09/02/22 11:09 AM) MCHC [32.0-36.0 g/dL] 33.0 g/dL (09/02/22 11:09 AM) Osmolality [275-295 mOsm/kg] 273 mOsm/kg *LOW* (09/02/22:09 AM) Sodium Level [134-143 mmol/L] 134 mmol/L (09/02/22 11:09 AM) Lymph Absolute [1.2-3.4 K/mcL] 2.4 K/mcL (09/02/22 11:09 AM) Hct [37.0-52.0 %] 45.4 % (09/02/2209 AM) Calcium Level [8.9-10.3 mg/dL] 9.5 mg/dL (09/02/22 11:09 AM) Trimble Absolute [0.1-0.6 K/mcL] 0.8 K/mcL *HI* (09/02/22 1109 AM) Albumin Level [3.5-5.0 g/dL] 3.8 g/dL (09/02/22 11:09 AM) Protein Total [6.5-8.1 g/dL] 7.1 g/dL (09/02/22 11:09 AM) MCH [27.0-31.0 pg] 29.6 pg (09/02/22 11:09 AM) Neutro Absolute [1.4-6.5 K/mcL] 6.2 K/mc L (09/02/22 11:09 AM) Bilirubin Total [0.2-1.2 mg/dL] 0.8 mg/d L (09/02/22 11:09 AM) Hgb [12.0-18.0 g/dL] 15.0 g/dL (09/02/22 1109 AM) Alk Phos [38-130 IntlUnit/L] 76 IntlUnit /L (09/02/22 11:09 AM) MPV [7.4-10.4 fL] 10.0 fL (09/02/22:09 AM) Platelets [130-400 K/mcL] 197 K/mcL (09/02/22 1109 AM) CO2 [22-32 mmol/L] 28 mmol/L (09/02/22 11:09 AM) Eos Absolute [0.0-0.2 K/mcL] 0.3 K/mcL *HI* (09/02/22 11:09 AM) PSA Total Diagnostic [<=4.000 ng/mL] 0.0 40 ng/mL (09/02/22 11:09 AM) eGFR Non-AA 94 *NA* (09/02/2209 AM) eGFR AA 94 *NA* (09/02/22 11:09 AM) Chloride Level [98-111 mmol/L] 98 mmol/L (09/02/22 11:09 AM) RDW-CV [11.5-14.5 %] 13.1 % (09/02/22 11:09 AM) A/G Ratio 1.2 *NA* (09/02/22 11:09 AM) BUN/Creat Ratio [8.0-20.0] 30.2 *HI* (09/02/22:09 AM) Globulin 3.3 *NA* (09/02/22 11:09 AM) Imm Gran Absolute 0.03 *NA* (09/02/22 11:09 AM) Imm Gran Auto [0.0-0.5 %] 0.3 % (09/02/22 11:09 AM) Creatinine Level [0.61-1.24 mg/dL] 0.86 mg/dL (09/02/22 11:09 AM) Anion Gap [3.0-12.0] 8.0 (09/02/22 11:09 AM) Eos, Auto [0.00-3.00 %] 3.40 % *HI* (09/02/22 11:09 AM)
--- OUTSIDE RECORDS SUMMARY | 2023-09-20 09:46 | XMS_ITS | Continuity of Care Document ---
Author Name Unknown Organization [facility] Address [address] [place] [address] Care Team Providers Care Paper Sheeter Name Role Phone Dominique Aparicio Primary Care Physician Encounter [facility]_[place] FIN NBR [id number] Date(s): 06/23/23 - 06/23/23 [facility] [address] [place], [place] [id number]- [place] Discharge Disposition: Home or Self Care Attending Physician: Guevara Ibarra MD Admitting Physician: Guevara Ibarra MD Referring Physician: Guevara Ibarra MD Allergies, Adverse Reactions, Alerts Substance Reaction Severity Status penicillins Moderate Active Assessment and Plan Future Appointments Medications amLODIPine 10 mg =, Daily, 0 Refill(s) Start Date: 06/23/23 Status: Ordered hydrOXYzine 25 mg =, every night at bedtime, 0 Refill(s) Start Date: 06/23/23 Status: Ordered ibuprofen 800 mg oral tablet 800 mg = 1 tab, Oral, TID Start Date: 09/07/22 Status: Ordered leuprolide 45 mg/6 months intramuscular injection, extended release 45 mg =, IM, every 6 mo Start Date: 09/07/22 Status: Ordered losartan 100 mg oral tablet 100 mg =, Daily, 0 Refill(s) Start Date: 06/23/23 Status: Ordered Multi Vitamin+ 1 tab, Oral, Daily Start Date: 09/07/22 Status: Ordered tamsulosin 0.4 mg oral capsule 0.8 mg = 2 cap, Oral, Daily Start Date: 09/07/22 Status: Ordered Vital Signs Most recent to oldest [Reference Range]: 1 Temperature Temporal Artery [36-38 Deg C ] 36.8 Deg C (06/23/23 8:06 AM) Peripheral Pulse Rate [60-100 bpm] 104 b pm *HI* (8/9/23 8:06 AM) Blood Pressure [90-140/60-90 mmHg] 115/7 7mmHg (06/23/23 8:06 AM) Weight 90.3 kg (06/23/23 8:06 AM) Social History Social History Type Response Tobacco Former tobacco user Tobacco Use:. Sex Patient Care team information Care Team Personnel Name: ILANA Rhoades Position: Physician Member Role: Primary Care Physician Address: Address: [address] [place] [id number]- Name: Guevara Ibarra MD Position: Physician Member Role: Informed Provider Address: Address: [address] [address]- Care Team Related Persons Name: HELDER ECHEVERRIA Address: [place]
--- OUTSIDE RECORDS SUMMARY | 2023-09-20 09:46 | XMS_ITS | Continuity of Care Document ---
Author Name Unknown Organization [facility] Address [address] [place] [address] Encounter LTTL_[place] FIN NBR [id number] Date(s): 09/07/22 - 09/07/22 [facility] [address] [place], [place] [address] Discharge Disposition: Home or Self Care Attending Physician: VERONA KHAN Admitting Physician: VERONA KHAN Allergies, Adverse Reactions, Alerts Substance Reaction Severity Status penicillins Moderate Active Assessment and Plan Future Appointments Functional Status 09/07/22 Recent Travel History No recent travel Other exposure to Infectious Disease Non e Medications citalopram 20 mg oral tablet 20 [...] Most recent to oldest [Reference Range]: 1 2 Temperature Temporal Artery [36-38 Deg C ] 36.8 Deg C (09/07/22 3:18 PM) Peripheral Pulse Rate [60-100 bpm] 78 bp m (09/07/22 3:18 PM) Respiratory Rate [12-24 br/min] 18 br/mi n (09/07/22 3:18 PM) Blood Pressure [90-140/60-90 mmHg] 154/8 1mmHg *HI* (09/07/22 3:18 PM) Weight 92.500 kg (09/07/22 3:18 PM) Weight Dosing 92.500 kg (09/07/22 3:18 PM) 93.2 kg (09/02/22 1:51 PM) Height 176.500 cm (09/07/22 3:18 PM) Height/Length Dosing 176.500 cm (09/07/22 3:18 PM) 176.5 cm (09/02/22 1:50 PM) Social History Social History Type Response Tobacco Former tobacco user Tobacco Use:. Sex
--- OUTSIDE RECORDS SUMMARY | 2023-09-20 09:46 | XMS_ITS | Continuity of Care Document ---
Author 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 Admitting Physician: GUEVARA KHAN M.D. Referring Physician: ILANA Rhoades Allergies, Adverse Reactions, Alerts Substance Reaction Severity Status penicillins Moderate Active Assessment and Plan Future Appointments Diagnostic Tests Pending * Smear Exam by Pathologist 06/21/23 Medications citalopram 20 mg oral tablet 20 [...] Status: Ordered Results Laboratory List Name Date .Manual Differential ([facility]) 06/21/23 CBC w/ Diff 06/21/23 Comprehensive Metabolic Panel 06/21/23 PSA Diagnostic 06/21/23 Testosterone Level Total 06/21/23 Most recent to oldest [Reference Range]: 1 WBC [4.8-10.8 K/mcL] 2.1 K/mcL 1 *CRIT* (06/21/23 9:27 AM) RBC [4.20-6.10 Million/mcL] 3.31 Million /mcL *LOW* (06/21/23 9:27 AM) Segs Man 42 *NA* (06/21/23 9:27 AM) Lymph Man [20.5-51.1 %] 28.0 % (06/21/23 9:27 AM) [place] Man [1.7-9.3 %] 15.0 % *HI* (06/21/23 9:27 AM) Eos Man [0.00-3.00 %] 2.00 % (06/21/23 9:27 AM) BUN [8-26 mg/dL] 15 mg/dL (06/21/23 9:27 AM) Glucose Level [74-106 mg/dL] 99 mg/dL (06/21/23 9:27 AM) [place] Man 0 % *NA* (06/21/23 9:27 AM) Lymph, Atyp Man 13 % *NA* (06/21/23 9:27 AM) Potassium Level [3.5-5.1 mmol/L] 4.6 mmo l/L (06/21/23 9:27 AM) MCV [80.0-94.0 fL] 89.7 fL (06/21/23 9:27 AM) RBC Morph [Normal] Abnormal *ABN* (06/21/23 9:27 AM) Testosterone Total [175-781 ng/dL] 19 ng /dL *LOW* (06/21/23 9:27 AM) AST [15-41 IntlUnit/L] 15 IntlUnit/L (06/21/23 9:27 AM) Blasts Man 0 % *NA* (06/21/23 9:27 AM) ALT [17-63 IntlUnit/L] 15 IntlUnit/L *LOW* (06/21/23 9:27 AM) MCHC [32.0-36.0 g/dL] 33.3 g/dL (06/21/23 9:27 AM) Osmolality [275-295 mOsm/kg] 277 mOsm/kg (06/21/23: AM) Sodium Level [134-143 mmol/L] 138 mmol/L (06/21/23 9:27 AM) Promyelo Man 0 % *NA* (06/21/23: AM) Myelo Man 0 % *NA* (06/21/23: AM) Hct [42.0-52.0 %] 29.7 % *LOW* (06/21/23: AM) Calcium Level [8.9-10.3 mg/dL] 9.5 mg/dL (06/21/23: AM) Albumin Level [3.5-5.0 g/dL] 3.7 g/dL (06/21/23:27 AM) Protein Total [6.5-8.1 g/dL] 6.5 g/dL (06/21/23: AM) Poik 1+ *ABN* (06/21/23: AM) MCH [27.0-31.0 pg] 29.9 pg (06/21/23 9:27 AM) Bilirubin Total [0.2-1.2 mg/dL] 0.4 mg/d L (06/21/23 9: AM) Hgb [14.0-18.0 g/dL] 9.9 g/dL *LOW* (06/21/23 9:27 AM) NRBC Man 0 % *NA* (06/21/23: AM) Alk Phos [38-130 IntlUnit/L] 61 IntlUnit /L (06/21/23 9:27 AM) MPV [7.4-10.4 fL] 9.5 fL (06/21/23 9:27 AM) Band Man 0 % *NA* (06/21/23 9:27 AM) Platelets [130-400 K/mcL] 104 K/mcL *LOW* (06/21/23 9:27 AM) CO2 [22-32 mmol/L] 28 mmol/L (06/21/23: AM) PSA Total Diagnostic [<=4.000 ng/mL] <0. 008 ng/mL 2 (06/21/23 9:27 AM) Chloride Level [98-111 mmol/L] 101 mmol/ L (06/21/23 9:27 AM) RDW-CV [11.5-14.5 %] 15.0 % *HI* (06/21/23 9:27 AM) A/G Ratio 1.3 *NA* (06/21/23 9:27 AM) BUN/Creat Ratio [8.0-20.0] 19.7 (06/21/23 9:27 AM) Globulin 2.8 *NA* (06/21/23 9:27 AM) Slide Review Man Diff (06/21/23 9:27 AM) Abs Baso Man [0.0-0.2 K/mcL] 0.0 K/mcL (06/21/23 9:27 AM) Abs Eos Man [0.0-0.2 K/mcL] 0.0 K/mcL (06/21/23 9:27 AM) Abs Lymph Man [1.2-3.4 K/mcL] 0.6 K/mcL *LOW* (06/21/23 9:27 AM) Abs [place] Man [0.1-0.6 K/mcL] 0.3 K/mcL (06/21/23 9:27 AM) Abs Neut Man [1.4-6.5 K/mcL] 0.9 K/mcL *LOW* (06/21/23 9:27 AM) Anisocyte 1+ (06/21/23 9:27 AM) Creatinine Level [0.61-1.24 mg/dL] 0.76 mg/dL (06/21/23 9:27 AM) Plt Estimation Decreased *ABN* (06/21/23 9:27 AM) Anion Gap [3.0-12.0] 9.0 (06/21/23 9:27 AM) Baso Man [0.0-0.8 %] 0.0 % (06/21/23 9:27 AM) Path Rev [No] Yes *ABN* (06/21/23 9:27 AM) eGFR CKD-EPI [>=60 mL/min/1.73 m2] 97 mL /min/1.73 m2 (06/21/23 9:27 AM) 1Result Comment: Called to and read back by sissy plummer at 06/21/2023 10:21:34 EDT ann Results verified by repeat analysis. 2Interpretive Data: The concentration of Prostate specific antigen determined from different manufactures and assay methods will vary due to differences in the method and reagent specificity. Values obtained by different methods cannot be used interchangeably and may not be comparable. This is a [employer]??paramagnetic particle, chemiluminescent immunoassay. Social History Social History Type Response Tobacco Former tobacco user Tobacco Use:. Sex Patient Care team information Care Team Personnel Name: ILANA Rhoades Position: Physician Member Role: Primary Care Physician Address: Address: [address] [place] [id number]- Name: Guevara Khan MD Position: Physician Member Role: Informed Provider Address: Address: [address] [id number] Care Team Related Persons Name: HELDER ECHEVERRIA Address: Home
--- OUTSIDE RECORDS SUMMARY | 2023-09-20 09:46 | XMS_ITS | Continuity of Care Document ---
Author Name Unknown Organization [facility] Address [address] [place] [address] Care Team Providers Care Medical Support Specialist Name Role Phone Dominique Aparicio Primary Care Physician Encounter [facility]TT[facility]_AR FIN NBR [id number] Date(s): 03/08/23 - 03/09/[address] [id number] [place] Encounter Diagnosis Hyponatremia(Discharge Diagnosis) - 03/08/23 Hilar mass(Discharge Diagnosis) - 03/08/23 SVC syndrome(Discharge Diagnosis) - 03/08/23 Discharge Disposition: Transfer to Higher Level of Care Attending Physician: Ruthy Abel MD Admitting Physician: Ruthy Abel MD Allergies, Adverse Reactions, Alerts Substance Reaction Severity Status penicillins Moderate Active Assessment and Plan Future Appointments Functional Status 03/08/23 Other exposure to Infectious Disease Non e [...] Status: Ordered Results Laboratory List Name Date Basic Metabolic Panel (BMP) 03/09/23 Basic Metabolic Panel (BMP) 03/09/23 Basic Metabolic Panel (BMP) 03/09/23 CBC w/ Diff 03/08/23 Automated Diff 03/08/23 Magnesium Level 03/08/23 Most recent to oldest [Reference Range]: 1 2 3 WBC [4.8-10.8 K/mcL] 7.9 K/mcL (03/08/23 8:20 PM) RBC [4.20-6.10 Million/mcL] 4.18 Million /mcL *LOW* (03/08/23 8:20 PM) Neutro Auto [42.2-75.2 %] 70.7 % (03/08/23 8:20 PM) Lymph Auto [20.5-51.1 %] 16.3 % *LOW* (03/08/23 8:20 PM) Amelia Auto [1.7-9.3 %] 9.9 % *HI* (03/08/23 8:20 PM) Basophil Auto [0.0-0.8 %] 0.4 % (03/08/23 8:20 PM) BUN [8-26 mg/dL] 13 mg/dL (03/09/23 7:04 PM) 11 mg/dL (03/09/23 12:41 PM) 10 mg/dL (03/09/23 9:08 AM) Glucose Level [74-106 mg/dL] 106 mg/dL (03/09/23 7:04 PM) 124 mg/dL *HI* (03/09/23 12:41 PM) 109 mg/dL *HI* (03/09/23 9:08 AM) Potassium Level [3.5-5.1 mmol/L] 4.0 mmol/L (03/09/23 7:04 PM) 3.7 mmol/L (03/09/23 12:41 PM) 3.9 mmol/L (03/09/23 9:08 AM) Baso Absolute [0.0-0.2 K/mcL] 0.0 K/mcL (03/08/23 8:20 PM) MCV [80.0-94.0 fL] 80.4 fL (03/08/23 8:20 PM) MCHC [32.0-36.0 g/dL] 35.7 g/dL (03/08/23 8:20 PM) Osmolality [275-295 mOsm/kg] 252 mOsm/kg *LOW* (03/09/23 7:04 PM) 249 mOsm/kg *LOW* (03/09/23 12:41 PM) 244 mOsm/kg *LOW* (03/09/23 9:08 AM) Sodium Level [134-143 mmol/L] 125 mmol/L 1 *CRIT* (03/09/23 7:04 PM) 123 mmol/L 2 *CRIT* (03/09/23 12:41 PM) 121 mmol/L 3 *CRIT* (03/09/23 9:08 AM) Lymph Absolute [1.2-3.4 K/mcL] 1.3 K/mcL (03/08/23 8:20 PM) Hct [42.0-52.0 %] 33.6 % *LOW* (03/08/23 8:20 PM) Calcium Level [8.9-10.3 mg/dL] 9.0 mg/dL (03/09/23 7:04 PM) 9.0 mg/dL (03/09/23 12:41 PM) 8.9 mg/dL (03/09/23 9:08 AM) Amelia Absolute [0.1-0.6 K/mcL] 0.8 K/mcL *HI* (03/08/23 8:20 PM) MCH [27.0-31.0 pg] 28.7 pg (03/08/23 8:20 PM) Magnesium Level [1.8-2.5 mg/dL] 1.9 mg/dL (03/08/23 4:52 PM) Neutro Absolute [1.4-6.5 K/mcL] 5.6 K/mcL (03/08/23 8:20 PM) Hgb [14.0-18.0 g/dL] 12.0 g/dL 4 *LOW* (03/08/23 8:20 PM) MPV [7.4-10.4 fL] 8.6 fL (03/08/23 8:20 PM) Platelets [130-400 K/mcL] 192 K/mcL (03/08/23 8:20 PM) CO2 [22-32 mmol/L] 28 mmol/L (03/09/23 7:04 PM) 27 mmol/L (03/09/23 12:41 PM) 27 mmol/L (03/09/23 9:08 AM) Eos Absolute [0.0-0.2 K/mcL] 0.2 K/mcL (03/08/23 8:20 PM) Chloride Level [98-111 mmol/L] 88 mmol/L *LOW* (03/09/23 7:04 PM) 85 mmol/L *LOW* (03/09/23 12:41 PM) 85 mmol/L *LOW* (03/09/23 9:08 AM) RDW-CV [11.5-14.5 %] 12.9 % (03/08/23 8:20 PM) BUN/Creat Ratio [8.0-20.0] 16.7 (03/09/23 7:04 PM) 14.3 (03/09/23 12:41 PM) 14.7 (03/09/23 9:08 AM) Imm Gran Absolute 0.03 *NA* (03/08/23 8:20 PM) Imm Gran Auto [0.0-0.5 %] 0.4 % (03/08/23 8:20 PM) NRBC Auto 0 *NA* (03/08/23 8:20 PM) NRBC Absolute 0 *NA* (03/08/23 8:20 PM) Creatinine Level [0.61-1.24 mg/dL] 0.78 mg/dL (03/09/23 7:04 PM) 0.77 mg/dL (03/09/23 12:41 PM) 0.68 mg/dL (03/09/23 9:08 AM) Anion Gap [3.0-12.0] 9.0 (03/09/23 7:04 PM) 11.0 (03/09/23 12:41 PM) 9.0 (03/09/23 9:08 AM) Eos, Auto [0.00-3.00 %] 2.30 % (03/08/23 8:20 PM) eGFR CKD-EPI [>=60 mL/min/1.73 m2] 97 mL/min/1.73 m2 (03/09/23 7:04 PM) 98 mL/min/1.73 m2 (03/09/23 12:41 PM) 101 mL/min/1.73 m2 (03/09/23 9:08 AM) 1Result Comment: Results verified by repeat analysis. Called and read back by _Zainab Ceballos RN at _03/09/2023 19:33:09 EDT 2Result Comment: Results verified by repeat analysis. Called PARAS RESENDEZ RN read back by HANK at 03/09/2023 13:32:44 EDT 3Result Comment: Results verified by repeat analysis. Called paras resendez rn read back by hank at 03/09/2023 10:46:11 EDT 4Result Comment: Results verified by repeat analysis. Radiology Reports * Exam Date Time Procedure Performing Provider Status 03/08/23 5:09 PM XR Chest 2 Views Mary, John ; Auth (Verified) Notes: (XR Chest 2 Views) Reason For Exam: ?mass/hyponatremia tob abuse XR Chest 2 Views EXAM DESCRIPTION: XR Chest 2 Views 03/08/2023 INDICATION: ?MASS/HYPONATREMIA TOB ABUSE COMPARISON: CT chest examination from the same date. IMPRESSION: Prominent right hilar and right paratracheal region mass suspicious for neoplasm. Please see same date CT chest report. Otherwise no focal infiltrate or pulmonary edema Normal cardiac size No significant pleural effusion or pneumothorax. Spondylotic changes of the dorsal spine. JOB #: [id number] Final Signed by: Ben Contreras MD Signed (Electronic Signature): 03/08/2023 6:31 pm * Exam Date Time Procedure Performing Provider Status 03/08/23 5:[address] Chest w/ Contrast Nils Lanier; Auth (Verified) Notes: (CT Chest w/ Contrast) Reason For Exam: hilar mass? CT Chest w/ Contrast PROCEDURE INFORMATION: Exam: CT Chest With Contrast; Diagnostic Exam date and time: 03/08/2023 5:39 PM Age: 67 years old Clinical indication: Screening exam; Other screening; Additional info: Hilar mass? TECHNIQUE: Imaging protocol: Diagnostic computed tomography of the chest with contrast. Radiation optimization: All CT scans at this facility use at least one of these dose optimization techniques: automated exposure control; mA and/or kV adjustment per patient size (includes targeted exams where dose is matched to clinical indication); or iterative reconstruction. Contrast material: ISOVUE 300; Contrast volume: 100 ml; Contrast route: INTRAVENOUS (IV); REPORTING DATA: Count of CT and Cardiac NM exams in prior 12 months: This patient has received 0 known CTs and 0 known cardiac nuclear medicine studies in the 12 months prior to the current study. COMPARISON: CT CHEST W CONTRAST 08/13/2021 8:14 AM FINDINGS: Lungs: Focal nodular opacity measuring 7 mm in the posteromedial right upper lobe on image 15 near the apex. No large parenchymal lung mass. No central endobronchial lesion. No evidence of pneumonia. There may be mild centrilobular emphysema changes in the lungs. Pleural spaces: No pleural effusion or pneumothorax. Heart: No overt cardiac enlargement or abnormal volume of pericardial fluid. Lymph nodes: Large right hilar mass or maki mass is present measuring 7 x 6 cm cross-sectional and 10 cm craniocaudal extending into the right paratracheal node chain. The right paratracheal component measures 4 x 4 cm cross-sectional. SVC is compressed but not occluded by the maki mass. Vasculature: Thoracic aorta is ectatic and atherosclerotic. No focal aneurysm or dissection. Low-density region in the hepatic dome measuring 2.5 cm at the level of the hepatic vein confluence is present and there is a low-density focus in the anterior right hepatic lobe measuring 2.6 cm. Adrenal glands: Adrenal glands are normal in appearance. Kidneys and ureters: Left kidney cyst measuring 4 cm is present, simple fluid density and likely benign. Bones/joints: Cervical spine fixation hardware is present. Diffuse idiopathic skeletal hyperostosis (DISH) changes are present. Soft tissues: No asymmetric abnormality of the extrathoracic soft tissues. IMPRESSION: 1. Large right hilar and right mediastinal mass measuring 7 x 6 x 10 cm extending into the right paratracheal region, highly concerning for metastatic or malignant adenopathy, with mass effect upon the SVC. No convincing primary lung malignancy although there is a nonspecific 7 mm posteromedial right apical lung nodule. 2. Questionable hepatic lesions, incompletely imaged. Consider abdominal and pelvic CT when clinically feasible COMMENTS: Consistent with the [employer]'s Incidental Findings Committee white paper (J Am Tisha Radiol 2018): Any incidental renal lesion less than 1 cm or classified as too small to characterize, or any incidental cystic renal lesion characterized as simple-appearing, is likely benign. No follow-up imaging is recommended for these lesions per consensus recommendations based on imaging criteria. THIS DOCUMENT HAS BEEN ELECTRONICALLY SIGNED BY NILS FALK MD on 03/08/2023 05:59 PM Final Signed by: Nils Falk MD Signed (Electronic Signature): 03/08/2023 5:59 pm * Exam Date Time Procedure Performing Provider Status 03/08/23 5:[address] Head w/o Contrast Nils Lanier; Megan (Verified) Notes: (CT Head w/o Contrast) Reason For Exam: headache/ h o ca CT Head w/o Contrast PROCEDURE INFORMATION: Exam: CT Head Without Contrast Exam date and time: 03/08/2023 4:58 PM Age: 67 years old Clinical indication: Pain; Headache; Additional info: Headache/ h o CA TECHNIQUE: Imaging protocol: Computed tomography of the head without contrast. Radiation optimization: All CT scans at this facility use at least one of these dose optimization techniques: automated exposure control; mA and/or kV adjustment per patient size (includes targeted exams where dose is matched to clinical indication); or iterative reconstruction. REPORTING DATA: Count of CT and Cardiac NM exams in prior 12 months: This patient has received 0 known CTs and 0 known cardiac nuclear medicine studies in the 12 months prior to the current study. COMPARISON: NM BONE SCAN WHOLE BODY 08/13/2021 6:30 AM FINDINGS: Brain: No intracranial mass, mass effect or midline shift. No acute intracranial hemorrhage. No CT evidence of acute cortical brain infarct. Cerebral ventricles: Ventricles, cisterns, and sulci are normal in size for age. Paranasal sinuses: Frontal and ethmoid sinus mucosal thickening is present. Mastoid air cells: Mastoid air cells are normally aerated. Auditory system: Middle ear spaces and ossicular chains have normal aeration and appearance. Orbital cavities: Imaged orbits and ocular globes are unremarkable. Bones/joints: No calvarial fracture or destructive process. Soft tissues: No focal subcutaneous soft tissue swelling. IMPRESSION: No acute or concerning focal intracranial abnormality. THIS DOCUMENT HAS BEEN ELECTRONICALLY SIGNED BY NILS FALK MD on 03/08/2023 05:38 PM Final Signed by: Nils Falk MD Signed (Electronic Signature): 03/08/2023 5:38 pm Vital Signs Most recent to oldest [Reference Range]: 1 2 3 Temperature Temporal Artery [36-38 Deg C] 36 Deg C (03/08/23 4:26 PM) Peripheral Pulse Rate [60-100 bpm] 88 bpm (03/09/23 11:00 AM) 82 bpm (03/09/23 10:53 AM) 80 bpm (03/09/23 10:30 AM) Heart Rate Monitored [60-100 bpm] 90 bpm (03/09/23 9:10 PM) 92 bpm (03/09/23 7:22 PM) 90 bpm (03/09/23 6:00 PM) Respiratory Rate [12-24 br/min] 16 br/min (03/09/23 9:10 PM) 14 br/min (03/09/23 7:22 PM) 13 br/min (03/09/23 5:00 PM) Blood Pressure [90-140/60-90 mmHg] 149/91mmHg *HI* (03/09/23 9:10 PM) 144/89mmHg *HI* (03/09/23 7:22 PM) 149/73mmHg *HI* (03/09/23 6:00 PM) Mean Arterial Pressure Cuff 103 mmHg (03/09/23 7:22 PM) 94 mmHg (03/09/23 6:00 PM) 105 mmHg (03/09/23 5:00 PM) Blood Pressure Method Manual (03/09/23 2:56 AM) Weight 92.00 kg (03/08/23 4:26 PM) Weight Dosing 92.00 kg (03/08/23 4:49 PM) Height 176.000 cm (03/08/23 4:26 PM) Height/Length Dosing 176.000 cm (03/08/23 4:49 PM) Body Mass Index 30.000 kg/m2 (03/08/23 4:26 PM) Social History Social History Type Response Tobacco Former tobacco user Tobacco Use:. Sex Physician Emergency department Note * Santo Casas, : PERFORM, MODIFY, MODIFY, MODIFY Event Display: ED Note Physician Authored Date: [id number] RADHA ECHEVERRIA :1955 Age:67 years Sex:Male Visit Date:03/08/2023 Primary Care Physician: ILANA Rhoades 9:00 AM:??Signout from overnight ED attending pending transfer to [facility]. 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 fluids,??and a total of 1450 IV NSS. No??Lasix was given as of yet although he remained on fluid restriction due to sodium??being 2.8-3.1.?? Will obtain repeat BMP. ??We will switch to maintenance fluids to??normal saline with 40??mill equivalents??KCL at??125 an hour. ?? 9:15 AM: Repeat BMP showed a sodium of 121, potassium 3.9, chloride 85, CO2 27, BUN 10, creatinine 0.68, and glucose 109 mg/dL.?? Patient continues to rest comfortably in no apparent distress. ?? 11:00 AM:??Patient received an additional??250 mL??IV NSS with 40 mill equivalents KCl.?? As potassium remains within normal limits I will start diuresis with 40 mg Lasix IV.?? Called [facility] who reported that I will be mid afternoon before transfer can be??accommodated.?? We will continue to monitor w ith repeat??BMP??in 3 hours (12:30 PM). ?? 1:15 PM:??Repeat??sodium is 123, potassium 3.7, chloride 85, CO2 27,??BUN 11, creatinine 0.77, glucose 124 mg/dL.?? Will obtain??6-hour repeat??BMP??if the patient is still here pending transport.?? We will continue on 125 mL??NSS with 40 mill equivalents KCl.?? We will allow the patient to eat??asneeded. ?? 3:30 PM:??Received phone call from [facility] internal medicine attending??who wanted to ascertain patient's current??hemodynamic status??and recent laboratory work- up.?? She was updated and stated??that she will call us back??with available bed. ?? 5:00 PM: Patient??got a meal tray. ??He is in good spirits, resting comfortably in no apparent distress. ?? 7:15 PM:??Called [facility] transfer center back to ascertain whether or not we have a bed.?? They indicated that they just realized that a bed is available. ??We are going to work for ambulance transportation at present time.?? Awaiting results of??repeat BMP at present time. ?? 7:45 PM: Awaiting ambulance transportation.?? Repeat BMP reveals a sodium of 125, potassium 4.0, chloride 88, CO2 28, BUN 13, creatinine 0.78, glucose 106 mg/dL. ??Patient is in good spirits. ??Afebrile. ??Hemodynamically stable. Electronically Signed on 03/09/23 07:41 PM Santo Casas, DO * Ruthy Abel MD: PERFORM, MODIFY, MODIFY, MODIFY, MODIFY Event Display: ED Note Physician Authored Date: [id number] RADHA ECHEVERRIA :1955 Age:67 years Sex:Male Visit Date:03/08/2023 Primary Care Physician: ILANA Rhoades Basic Information Time Seen: Ruthy Abel MD / 03/08/2023 16:28 Chief Complaint pt has prostate ca routine labs showed low sodium History Of Present Illness: This patient is a 67-year-old male with a history of??prostate cancer and tobacco abuse presents the emergency department today??for evaluation of hyponatremia. ??The patient states that he had some routine labs done??through his oncology office and found him to have a very low sodium.?? Therefore he was sent to the emergency department. ??He states that he has not had any??confusion but has had some increased dizziness. ??He also notes that over the last few weeks he has had??persistent headache which she attributed to a sinus??congestion issue and??has not had any imaging done for this.?? The patient is also a smoker.?? Patient??typically does not consume significant amount of fluids at baseline although this is unchanged. ??He has started??a recent diet to lose weight??but is still eating??normal amounts of food. Review of Systems: CONSTITUTIONAL:??No fevers or chills. ??Dizziness EYES:??No change in vision. ENT:??No sore throat. ??+headache. ??No neck pain. CARDIOVASCULAR:??No chest pain, palpitations or passing out episodes. RESPIRATORY:??No cough, shortness of breath or hemoptysis. GI:??No abdominal pain. No nausea, vomiting or diarrhea. :??No change in urination. SKIN:??No rash. NEUROLOGIC:??No numbness or weakness. MUSCULOSKELETAL:??No swelling or pain. PSYCHIATRIC:??No depression. LYMPH:??No swelling. Review of systems otherwise as stated in HPI Physical Exam Vitals & Measurements T:??36?C ??(Temporal Artery)?? HR:??82??(Peripheral)?? RR:??20?? BP:??170/95?? SpO2:??95%?? HT:??176.000??cm?? WT:??92.00??kg?? BMI:??30.000?? O2 Therapy:??Aerosol mask?? General: ??AAOx3. ??GCS15. ??No acute distress, answering questions appropriately. Head: ??Atraumatic; Normocephalic Eye: ??PERRLA; EOMI; no scleral icterus / pallor ENT: moist mucous membranes; no epistaxis. No stridor. Neck: ??Active ROM intact; Trachea Midline. ??No JVD. ??No meningismus appreciated. Skin: Warm, dry Chest: ??Equal BS bilaterally. ??Clear to auscultation bilaterally. Heart: RRR; no murmur, rub, or gallop Abdomen: ??Soft, non-tender, non-distended, no guarding, rebound, or rigidity. No Hepatosplenomegaly Musculoskeletal: ??ROM intact of all extremities/joints without discomfort. ??Sensation grossly intact throughout. ??No obvious deformity. ??Strength Intact 5/5 throughout. ?? Neuro: Alert and oriented. Answering questions appropriately with clear speech. Motor and sensory grossly normal in all extremities.?? Medical Decision Making: This patient is a 67-year-old male who presents today for evaluation of hyponatremia. ??This was discovered on routine lab work which she had been getting done for his prostate cancer which is being treated with Lupron.?? The patient was complaining of some headache and some sinus congestion and with a history of cancer I did do a CT scan of the brain which did not show any??acute abnormality, nosinusitis or mass.?? However, the patient is a smoker and this in combination with the low sodium Iwanted to make sure that there was not a lung??tumor causing SIADH. ??Unfortunately, on the chest x-ray there was a hilar mass appreciated and so a CT scan was performed. ??This??unfortunately showed a??10 cm hilar mass with compression of the SVC which I think is likely what was causing the patient's pressure sensation in the face.?? Patient sodium was 118. ??He was given 1 L of normal saline here in the emergency department.?? He does not at this time have any confusion and has not had any??seizure activity although he will be under observation here. ??The patient will need to be transferred to a higher level of care.?? At around 6:45 PM I reached out to [facility] and I am waiting to hear back if he could be accepted there. ?? 6:54 PM???[facility] is at capacity and cannot accept the patient 6:56 PM-[facility] does not have any capacity at this time to accept the patient. 7:06 PM???the patient has decided that he would like to??sign out AGAINST MEDICAL ADVICE understanding that he is at risk for seizure.?? His plan is that he would like to drive himself to [facility]. 7:50 PM???patient was commenced to stay. ??I did hear back from [facility] and spoke with Dr. Ulysses Vazqeuz from oncology??who states that they would like to accept the patient to [facility] but do not have a physical bed for him currently. ??I will be talking to the medical hospitalist team shortly and then patient will likely be here held here in the ER overnight??until a bed is made available in the morning??at [facility]. 9:17 AM???you are still waiting a bed at [facility]. ??Repeat BMP is pending at this time. ??The patient has received a total of 30??mEq of potassium overnight.?? I think with his potassium is at an appropriate level we could perhaps start??normal saline with 20??mg of Lasix. ??The patient will be co ntinued on a fluid restriction.?? Patient was signed out to Dr. Casas??at time of shift change pending transfer. Procedure No Qualifying Data Assessment/Plan 1.??Hyponatremia??E87.1 Ordered: potassium chloride, 10 mEq = 100 mL, IV Piggyback, Injection, Daily for 30 days, Administer over: 60 minutes, First Dose: 03/09/23 6:23:00 EDT, Stop Date: 04/07/23 8:59:00 EDT, Physician Stop, 100 mL/hr ?? 2.??Hilar mass??R91.8 Ordered: potassium chloride, 10 mEq = 100 mL, IV Piggyback, Injection, Daily for 30 days, Administer over: 60 minutes, First Dose: 03/09/23 6:23:00 EDT, Stop Date: 04/07/23 8:59:00 EDT, Physician Stop, 100 mL/hr ?? 3.??SVC syndrome??I87.1 Ordered: potassium chloride, 10 mEq = 100 mL, IV Piggyback, Injection, Daily for 30 days, Administer over: 60 minutes, First Dose: 03/09/23 6:23:00 EDT, Stop Date: 04/07/23 8:59:00 EDT, Physician Stop, 100 mL/hr ?? Orders: Basic Metabolic Panel, Blood, Stat, 03/09/23 8:58:00 EDT, Once, Nurse collect Medication Reconciliation Unchanged citalopram (citalopram 20 mg oral tablet)1 tab Oral (given by mouth) every day. ?? hydroCHLOROthiazide (hydroCHLOROthiazide 25 mg oral tablet)1 tab Oral (given by mouth) every day. ?? ibuprofen (ibuprofen 800 mg oral tablet)1 tab Oral (given by mouth) 3 times a day. ?? leuprolide (leuprolide 45 mg/6 months intramuscular injection, extended release)45 Milligrams Intramuscular (in a muscle) every 6 months. ?? multivitamin (Multi Vitamin+)1 tab Oral (given by mouth) every day. ?? tamsulosin (tamsulosin 0.4 mg oral capsule)2 Capsules Oral (given by mouth) every day. Problem List/Past Medical History Ongoing No qualifying data Historical No qualifying data Medication Administration Given Sodium Chloride 0.9%, 1000 mL, Hydration Bolus Allergies penicillins Social History Electronic Cigarette/Vaping Electronic Cigarette Use: Never. Tobacco Former tobacco user Tobacco Use:. Diagnostic Results CT Chest w/ Contrast 03/08/2023 17:[address] Head w/o Contrast 03/08/2023 17:39 EDT XR Chest 2 Views 03/08/2023 18:[address] Chest w/ Contrast ?? 03/08/23 17:39:21 PROCEDURE INFORMATION: Exam: CT Chest With Contrast; Diagnostic Exam date and time: 03/08/2023 5:39 PM Age: 67 years old Clinical indication: Screening exam; Other screening; Additional info: Hilar mass? ?? TECHNIQUE: Imaging protocol: Diagnostic computed tomography of the chest with contrast. Radiation optimization: All CT scans at this facility use at least one of these dose optimization techniques: automated exposure control; mA and/or kV adjustment per patient size (includes targeted exams where dose is matched to clinical indication); or iterative reconstruction. Contrast material: ISOVUE 300; Contrast volume: 100 ml; Contrast route: INTRAVENOUS (IV); ?? REPORTING DATA: Count of CT and Cardiac NM exams in prior 12 months: This patient has received 0 known CTs and 0 known cardiac nuclear medicine studies in the 12 months prior to the current study. ?? COMPARISON: CT CHEST W CONTRAST 08/13/2021 8:14 AM ?? FINDINGS: Lungs: Focal nodular opacity measuring 7 mm in the posteromedial right upper lobe on image 15 near the apex. No large parenchymal lung mass. No central endobronchial lesion. No evidence of pneumonia. There may be mild centrilobular emphysema changes in the lungs. Pleural spaces: No pleural effusion or pneumothorax. Heart: No overt cardiac enlargement or abnormal volume of pericardial fluid. Lymph nodes: Large right hilar mass or maki mass is present measuring 7 x 6 cm cross-sectional and 10 cm craniocaudal extending into the right paratracheal node chain. The right paratracheal component measures 4 x 4 cm cross-sectional. SVC is compressed but not occluded by the maki mass. Vasculature: Thoracic aorta is ectatic and atherosclerotic. No focal aneurysm or dissection. Low-density region in the hepatic dome measuring 2.5 cm at the level of the hepatic vein confluence is present and there is a low-density focus in the anterior right hepatic lobe measuring 2.6 cm. ?? Adrenal glands: Adrenal glands are normal in appearance. Kidneys and ureters: Left kidney cyst measuring 4 cm is present, simple fluid density and likely benign. Bones/joints: Cervical spine fixation hardware is present. Diffuse idiopathic skeletal hyperostosis (DISH) changes are present. Soft tissues: No asymmetric abnormality of the extrathoracic soft tissues. ?? IMPRESSION: 1. Large right hilar and right mediastinal mass measuring 7 x 6 x 10 cm extending into the right paratracheal region, highly concerning for metastatic or malignant adenopathy, with mass effect upon the SVC. No convincing primary lung malignancy although there is a nonspecific 7 mm posteromedial right apical lung nodule. 2. Questionable hepatic lesions, incompletely imaged. Consider abdominal and pelvic CT when clinically feasible ?? COMMENTS: Consistent with the [employer]???s Incidental Findings Committee white paper (J Am Tisha Radiol 2018): Any incidental renal lesion less than 1 cm or classified as too small to characterize, or any incidental cystic renal lesion characterized as simple-appearing, is likely benign. No follow-up imaging is recommended for these lesions per consensus recommendations based on imaging criteria. ? THIS DOCUMENT HAS BEEN ELECTRONICALLY SIGNED BY NILS FALK MD on 03/08/2023 05:59 PM ?? Signed By: Nils Falk MD ?? XR Chest 2 Views ?? 03/08/23 18:31:28 EXAM DESCRIPTION: XR Chest 2 Views ?? 03/08/2023 ?? 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 COMPARISON: CT chest examination from the same date. ?? IMPRESSION: Prominent right hilar and right paratracheal region mass suspicious for neoplasm. Please see same date CT chest report. ?? Otherwise no focal infiltrate or pulmonary edema ?? Normal cardiac size ?? No significant pleural effusion or pneumothorax. ?? Spondylotic changes of the dorsal spine. ? JOB #: [id number] Electronically Signed By: ?? Signed By: Ben Contreras MD ?? CT Head w/o Contrast ?? 03/08/23 16:58:49 PROCEDURE INFORMATION: Exam: CT Head Without Contrast Exam date and time: 03/08/2023 4:58 PM Age: 67 years old Clinical indication: Pain; Headache; Additional info: Headache/ h o CA ?? TECHNIQUE: Imaging protocol: Computed tomography of the head without contrast. Radiation optimization: All CT scans at this facility use at least one of these dose optimization techniques: automated exposure control; mA and/or kV adjustment per patient size (includes targeted exams where dose is matched to clinical indication); or iterative reconstruction. ?? REPORTING DATA: Count of CT and Cardiac NM exams in prior 12 months: This patient has received 0 known CTs and 0 known cardiac nuclear medicine studies in the 12 months prior to the current study. ?? COMPARISON: NM BONE SCAN WHOLE BODY 08/13/2021 6:30 AM ?? FINDINGS: Brain: No intracranial mass, mass effect or midline shift. No acute intracranial hemorrhage. No CT evidence of acute cortical brain infarct. Cerebral ventricles: Ventricles, cisterns, and sulci are normal in size for age. Paranasal sinuses: Frontal and ethmoid sinus mucosal thickening is present. Mastoid air cells: Mastoid air cells are normally aerated. Auditory system: Middle ear spaces and ossicular chains have normal aeration and appearance. Orbital cavities: Imaged orbits and ocular globes are unremarkable. ?? Bones/joints: No calvarial fracture or destructive process. Soft tissues: No focal subcutaneous soft tissue swelling. ?? IMPRESSION: No acute or concerning focal intracranial abnormality. ? THIS DOCUMENT HAS BEEN ELECTRONICALLY SIGNED BY NILS FALK MD on 03/08/2023 05:38 PM ?? Signed By: Nils Falk MD Lab Results Routine Chemistry?? LATEST RESULTS?? HISTORICAL RESULTS?? Sodium Level?? 03/08/23 16:52?? 118 ??Critical?? 03/08/23?? 118 ??Critical?? Potassium Level?? 03/08/23 16:52?? 3.3 ??Low?? 03/08/23?? 3.4 ??Low?? Chloride Level?? 03/08/23 16:52?? 79 ??Low?? 03/08/23?? 80 ??Low?? CO2?? 03/08/23 16:52?? 30?? 03/08/23?? 28?? BUN?? 03/08/23 16:52?? 13?? 03/08/23?? 12?? Glucose Level?? 03/08/23 16:52?? 117 ??High?? 03/08/23?? 115 ??High?? Creatinine Level?? 03/08/23 16:52?? 0.70?? 03/08/23?? 0.69?? BUN/Creat Ratio?? 03/08/23 16:52?? 18.6?? 03/08/23?? 17.4?? Calcium Level?? 03/08/23 16:52?? 9.6?? 03/08/23?? 9.6?? Anion Gap?? 03/08/23 16:52?? 9.0?? 03/08/23?? 10.0?? Magnesium Level?? 03/08/23 16:52?? 1.9? Osmolality?? 03/08/23 16:52?? 240 ??Low?? 03/08/23?? 239 ??Low?? eGFR CKD-EPI?? 03/08/23 16:52?? 100?? 03/08/23?? 101? Electronically Signed on 03/09/23 09:18 AM Ruthy Abel MD CT Head WO contrast * Nils Falk MD: VERIFY, VERIFY Event Display: Report PROCEDURE INFORMATION: Exam: CT Head Without Contrast Exam date and time: 03/08/2023 4:58 PM Age: 67 years old Clinical indication: Pain; Headache; Additional info: Headache/ h o CA TECHNIQUE: Imaging protocol: Computed tomography of the head without contrast. Radiation optimization: All CT scans at this facility use at least one of these dose optimization techniques: automated exposure control; mA and/or kV adjustment per patient size (includes targeted exams where dose is matched to clinical indication); or iterative reconstruction. REPORTING DATA: Count of CT and Cardiac NM exams in prior 12 months: This patient has received 0 known CTs and 0 known cardiac nuclear medicine studies in the 12 months prior to the current study. COMPARISON: NM BONE SCAN WHOLE BODY 08/13/2021 6:30 AM FINDINGS: Brain: No intracranial mass, mass effect or midline shift. No acute intracranial hemorrhage. No CT evidence of acute cortical brain infarct. Cerebral ventricles: Ventricles, cisterns, and sulci are normal in size for age. Paranasal sinuses: Frontal and ethmoid sinus mucosal thickening is present. Mastoid air cells: Mastoid air cells are normally aerated. Auditory system: Middle ear spaces and ossicular chains have normal aeration and appearance. Orbital cavities: Imaged orbits and ocular globes are unremarkable. Bones/joints: No calvarial fracture or destructive process. Soft tissues: No focal subcutaneous soft tissue swelling. IMPRESSION: No acute or concerning focal intracranial abnormality. THIS DOCUMENT HAS BEEN ELECTRONICALLY SIGNED BY NILS FALK MD on 03/08/2023 05:38 PM Final Signed by: Nils Falk MD Signed (Electronic Signature): 03/08/2023 5:[address] Chest W contrast IV * Nils Falk MD: VERIFY, VERIFY Event Display: Report PROCEDURE INFORMATION: Exam: CT Chest With Contrast; Diagnostic Exam date and time: 03/08/2023 5:39 PM Age: 67 years old Clinical indication: Screening exam; Other screening; Additional info: Hilar mass? TECHNIQUE: Imaging protocol: Diagnostic computed tomography of the chest with contrast. Radiation optimization: All CT scans at this facility use at least one of these dose optimization techniques: automated exposure control; mA and/or kV adjustment per patient size (includes targeted exams where dose is matched to clinical indication); or iterative reconstruction. Contrast material: ISOVUE 300; Contrast volume: 100 ml; Contrast route: INTRAVENOUS (IV); REPORTING DATA: Count of CT and Cardiac NM exams in prior 12 months: This patient has received 0 known CTs and 0 known cardiac nuclear medicine studies in the 12 months prior to the current study. COMPARISON: CT CHEST W CONTRAST 08/13/2021 8:14 AM FINDINGS: Lungs: Focal nodular opacity measuring 7 mm in the posteromedial right upper lobe on image 15 near the apex. No large parenchymal lung mass. No central endobronchial lesion. No evidence of pneumonia. There may be mild centrilobular emphysema changes in the lungs. Pleural spaces: No pleural effusion or pneumothorax. Heart: No overt cardiac enlargement or abnormal volume of pericardial fluid. Lymph nodes: Large right hilar mass or maki mass is present measuring 7 x 6 cm cross-sectional and 10 cm craniocaudal extending into the right paratracheal node chain. The right paratracheal component measures 4 x 4 cm cross-sectional. SVC is compressed but not occluded by the maki mass. Vasculature: Thoracic aorta is ectatic and atherosclerotic. No focal aneurysm or dissection. Low-density region in the hepatic dome measuring 2.5 cm at the level of the hepatic vein confluence is present and there is a low-density focus in the anterior right hepatic lobe measuring 2.6 cm. Adrenal glands: Adrenal glands are normal in appearance. Kidneys and ureters: Left kidney cyst measuring 4 cm is present, simple fluid density and likely benign. Bones/joints: Cervical spine fixation hardware is present. Diffuse idiopathic skeletal hyperostosis (DISH) changes are present. Soft tissues: No asymmetric abnormality of the extrathoracic soft tissues. IMPRESSION: 1. Large right hilar and right mediastinal mass measuring 7 x 6 x 10 cm extending into the right paratracheal region, highly concerning for metastatic or malignant adenopathy, with mass effect upon the SVC. No convincing primary lung malignancy although there is a nonspecific 7 mm posteromedial right apical lung nodule. 2. Questionable hepatic lesions, incompletely imaged. Consider abdominal and pelvic CT when clinically feasible COMMENTS: Consistent with the [place] [employer]'s Incidental Findings Committee white paper (J Am Tisha Radiol 2018): Any incidental renal lesion less than 1 cm or classified as too small to characterize, or any incidental cystic renal lesion characterized as simple-appearing, is likely benign. No follow-up imaging is recommended for these lesions per consensus recommendations based on imaging criteria. 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 IMPRESSION: Prominent right hilar and right paratracheal region mass suspicious for neoplasm. Please see same date CT chest report. Otherwise no focal infiltrate or pulmonary edema Normal cardiac size No significant pleural effusion or pneumothorax. Spondylotic changes of the dorsal spine. JOB #: [id number] Final Signed by: Ben Contreras MD Signed (Electronic Signature): 03/08/2023 6:31 pm Patient Care team information Care Team Personnel Name: ILANA Rhoades Position: Physician Member Role: Primary Care Physician Address: Address: [address] [place] [address] Name: Guevara Ibarra MD Position: Physician Member Role: Informed Provider Address: Address: [address] Name: Ruthy Abel MD Position: Physician Member Role: Admitting Physician Address: Address: [address] [place] [address] Name: Francy Shah Position: Nurse Member Role: ED Nurse Name: Santo Casas DO Position: Physician Member Role: Physician Address: Address: [address] [place] [address] [place] [address] Name: Adeline Murguia Position: Nurse Member Role: ED Nurse Care Team Related Persons Name: HELDER ECHEVERRIA
--- OUTSIDE RECORDS SUMMARY | 2023-09-20 09:46 | XMS_ITS | Continuity of Care Document ---
Author Name Unknown Organization [facility] Address [address] [place] [address] Care Team Providers Care Stock Hanger Name Role Phone Dominique Aparicio Primary Care Physician [phone] Encounter LTTL_GA FIN NBR [id number] Date(s): 07/12/23 - 07/13/[address] [id number] Encounter Diagnosis Coughing blood(Discharge Diagnosis) - 07/13/23 Pneumonia(Discharge Diagnosis) - 07/13/23 Small cell lung cancer(Discharge Diagnosis) - 07/13/23 Discharge Disposition: Home f/u External Provider Attending Physician: Yeison Montanez MD Admitting Physician: Yeison Montanez MD Allergies, Adverse Reactions, Alerts Substance Reaction Severity Status penicillins 1 Severe Active 1pt reprots throat closing long time ago but allergy confirmed with allergy testing about 20 years ago. Assessment and Plan Extracted from: Title:Clinical Document Author:Dereck CHERY, And re F Date:07/12/[address] Vince linder [facility]NT regarding the CT findings and sensation of bleeding from the throat on this patient. ENT felt that there was not any acute procedure that would warrant emergent transfer and deferring treatment tonight. She felt that the fact that the vocal cords were very symmetric that this could be just a manifestation of the phase of the CAT scan study itself. As patient does not have stridor or difficulty speaking or breathing she felt that emergent transfer was not indicated. I let the hospitalist know and patient was admitted as per previous plans by Nixon Hernandes Future Appointments Functional Status 07/13/23 Living Environment Living Situation: Ho me independently Current Home Treatments: Home Devices/Equipment Professional Skilled Services: Special Services and Community Resources: Sensory Deficits: Performed by: Candie Nolen-07/13/23 04:10:00 Lives With Significant other Living Situation Home independently 07/13/23 Personal Care Provided Oral care, Partial bath, Other: Changed into personal clothing 07/13/23 Breakfast Percent 100 07/13/23 ADLs Independent Family Member Travel History No recent t ravel Recent Travel History No recent travel Other exposure to Infectious Disease Non e Medications amLODIPine 10 mg oral tablet 10 mg = 1 tab, Oral, Daily, # 30 tab, 0 Refill(s) Start Date: 07/13/23 Status: Ordered hydrOXYzine pamoate 25 mg oral capsule 25 mg = 1 cap, Oral, every night at bedtime, 0 Refill(s) Start Date: 07/13/23 Status: Ordered levoFLOXacin 750 mg oral tablet 750 mg = 1 tab, Oral, Daily, # 5 tab, 0 Refill(s), Pharmacy: [facility], 176.5, cm, 07/13/23 2:13:00 EDT, Height/Length Dosing, 90.4, kg, 07/13/23 2:13:00 EDT, Weight Dosing Start Date: 07/13/23 Stop Date: 07/18/23 Status: Ordered losartan 100 mg oral tablet 50 mg =, Oral, Daily, 0 Refill(s) Start Date: 06/23/23 Status: Ordered Multi Vitamin+ 1 tab, Oral, Daily Start Date: 09/07/22 Status: Ordered omeprazole 40 mg oral delayed release capsule 40 mg = 1 cap, Oral, Daily, # 30 cap, 0 Refill(s) Start Date: 07/13/23 Status: Ordered polyethylene glycol 3350 oral powder for reconstitution 17 g, Oral, Daily, PRN constipation, # 510 g, 0 Refill(s) Start Date: 07/13/23 Status: Ordered senna 8.6 mg oral tablet 17.2 mg = 2 tab, Oral, every day at bedtime, PRN as needed for constipation, # 100 tab, 0 Refill(s) Start Date: 07/13/23 Status: Ordered tamsulosin 0.4 mg oral capsule 0.8 mg = 2 cap, Oral, Daily Start Date: 09/07/22 Status: Ordered Mental Status 07/12/23 Eye Opening Response Jens Spontaneous ly Best Verbal Response [place] Oriented Best Motor Response [place] Obeys comman ds Jens Coma Score 15 Problem List Condition Confirmation Course Effective Dates Status Health St atus Informant Small cell lung cancer Confirmed Active Results Laboratory List Name Date Automated Diff 07/13/23 Basic Metabolic Panel (BMP) 07/13/23 CBC w/ Diff 07/13/23 PT/ INR 07/12/23 PTT 07/12/23 Comprehensive Metabolic Panel (CMP) 07/12 Automated Diff 07/12/23 CBC w/ Diff 07/12/23 Most recent to oldest [Reference Range]: 1 2 WBC [4.8-10.8 K/mcL] 8.2 K/mcL (07/13/23 6:00 AM) 8.4 K/mcL (07/12/23 6:18 PM) RBC [4.20-6.10 Million/mcL] 3.75 Million /mcL *LOW* (07/13/23 6:00 AM) 3.86 Million/mcL *LOW* (07/12/23 6:18 PM) Neutro Auto [42.2-75.2 %] 73.0 % (07/13/23 6:00 AM) 59.0 % (07/12/23 6:18 PM) Lymph Auto [20.5-51.1 %] 9.8 % *LOW* (07/13/23 6:00 AM) 20.8 % (07/12/23 6:18 PM) [place] Auto [1.7-9.3 %] 13.5 % *HI* (07/13/23 6:00 AM) 15.6 % *HI* (07/12/23 6:18 PM) Basophil Auto [0.0-0.8 %] 0.5 % (07/13/23 6:00 AM) 0.7 % (07/12/23 6:18 PM) Prothrombin Time [9.1-10.6 seconds] 9.9 seconds (07/12/23 6:54 PM) INR [0.9-1.1] 1.0 1 (07/12/23 6:54 PM) BUN [8-26 mg/dL] 10 mg/dL (07/13/23 6:00 AM) 14 mg/dL (07/12/23 6:42 PM) Glucose Level [74-106 mg/dL] 109 mg/dL *HI* (07/13/23 6:00 AM) 110 mg/dL *HI* (07/12/23 6:42 PM) Potassium Level [3.5-5.1 mmol/L] 3.9 mmo l/L (07/13/23 6:00 AM) 3.5 mmol/L (07/12/23 6:42 PM) Baso Absolute [0.0-0.2 K/mcL] 0.0 K/mcL (07/13/23 6:00 AM) 0.1 K/mcL (07/12/23 6:18 PM) MCV [80.0-94.0 fL] 93.1 fL (07/13/23 6:00 AM) 92.2 fL (07/12/23 6:18 PM) AST [15-41 IntlUnit/L] 19 IntlUnit/L (07/12/23 6:42 PM) ALT [17-63 IntlUnit/L] 16 IntlUnit/L *LOW* (07/12/23 6:42 PM) MCHC [32.0-36.0 g/dL] 32.4 g/dL (07/13/23 6:00 AM) 32.9 g/dL (07/12/23 6:18 PM) Osmolality [275-295 mOsm/kg] 277 mOsm/kg (07/13/23 6:00 AM) 273 mOsm/kg *LOW* (07/12/23 6:42 PM) Sodium Level [134-143 mmol/L] 139 mmol/L (07/13/23 6:00 AM) 136 mmol/L (07/12/23 6:42 PM) Lymph Absolute [1.2-3.4 K/mcL] 0.8 K/mcL *LOW* (07/13/23 6:00 AM) 1.8 K/mcL (07/12/23 6:18 PM) Hct [42.0-52.0 %] 34.9 % *LOW* (07/13/23 6:00 AM) 35.6 % *LOW* (07/12/23 6:18 PM) Partial Thromboplastin Time [21.3-28.4 seconds] 23.3 seconds (07/12/23 6:54 PM) Calcium Level [8.9-10.3 mg/dL] 9.3 mg/dL (07/13/23 6:00 AM) 8.9 mg/dL (07/12/23 6:42 PM) [place] Absolute [0.1-0.6 K/mcL] 1.1 K/mcL *HI* (07/13/23 6:00 AM) 1.3 K/mcL *HI* (07/12/23 6:18 PM) Albumin Level [3.5-5.0 g/dL] 3.8 g/dL (07/12/23 6:42 PM) Protein Total [6.5-8.1 g/dL] 7.2 g/dL (07/12/23 6:42 PM) MCH [27.0-31.0 pg] 30.1 pg (07/13/23 6:00 AM) 30.3 pg (07/12/23 6:18 PM) Neutro Absolute [1.4-6.5 K/mcL] 6.0 K/mc L (07/13/23 6:00 AM) 5.0 K/mcL (07/12/23 6:18 PM) Bilirubin Total [0.2-1.2 mg/dL] 0.5 mg/d L (07/12/23 6:42 PM) Hgb [14.0-18.0 g/dL] 11.3 g/dL *LOW* (07/13/23 6:00 AM) 11.7 g/dL *LOW* (07/12/23 6:18 PM) Alk Phos [38-130 IntlUnit/L] 60 IntlUnit /L (07/12/23 6:42 PM) MPV [7.4-10.4 fL] 9.7 fL (07/13/23 6:00 AM) 10.1 fL (07/12/23 6:18 PM) Platelets [130-400 K/mcL] 194 K/mcL (07/13/23 6:00 AM) 226 K/mcL (07/12/23 6:18 PM) CO2 [22-32 mmol/L] 29 mmol/L (07/13/23 6:00 AM) 27 mmol/L (07/12/23 6:42 PM) Eos Absolute [0.0-0.2 K/mcL] 0.2 K/mcL (07/13/23 6:00 AM) 0.2 K/mcL (07/12/23 6:18 PM) Chloride Level [98-111 mmol/L] 103 mmol/ L (07/13/23 6:00 AM) 101 mmol/L (07/12/23 6:42 PM) RDW-CV [11.5-14.5 %] 14.6 % *HI* (07/13/23 6:00 AM) 14.6 % *HI* (07/12/23 6:18 PM) A/G Ratio [1.0-2.5 g/dL] 1.1 g/dL (07/12/23 6:42 PM) BUN/Creat Ratio [8.0-20.0] 12.7 (07/13/23 6:00 AM) 19.2 (07/12/23 6:42 PM) Globulin [2.3-3.5 g/dL] 3.4 g/dL (07/12/23 6:42 PM) Imm Gran Absolute 0.05 *NA* (07/13/23 6:00 AM) 0.08 *NA* (07/12/23 6:18 PM) Imm Gran Auto [0.0-0.5 %] 0.6 % *HI* (07/13/23 6:00 AM) 1.0 % *HI* (07/12/23 6:18 PM) Creatinine Level [0.61-1.24 mg/dL] 0.79 mg/dL (07/13/23 6:00 AM) 0.73 mg/dL (07/12/23 6:42 PM) Anion Gap [3.0-12.0] 7.0 (07/13/23 6:00 AM) 8.0 (07/12/23 6:42 PM) Eos, Auto [0.00-3.00 %] 2.60 % (07/13/23 6:00 AM) 2.90 % (07/12/23 6:18 PM) eGFR CKD-EPI [>=60 mL/min/1.73 m2] 96 mL /min/1.73 m2 (07/13/23 6:00 AM) 98 mL/min/1.73 m2 (07/12/23 6:54 PM) 1Interpretive Data: THERAPEUTIC INR RANGES FOR WARFARIN Uncomplicated venous thromboembolic disease 2-3 Lupus Anticoagulant and recurrent thrombosis 3-3.5 Mechanical prosthetic valve or recurrent thrombosis 2.5-3.5 Orders for Microbiology Reports Name Date Blood Culture 07/13/23 Blood Culture 07/13/23 Microbiology Reports TEST:Blood Culture STATUS:Order in Progress BODY SITE: SOURCE:Peripheral Blood COLLECTED DATE/TIME:07/13/23 1:50 AM PRELIMINARY REPORT No growth at 1 day. TEST:Blood Culture STATUS:Order in Progress BODY SITE:Right Arm SOURCE:Peripheral Blood COLLECTED DATE/TIME:07/13/23 1:45 AM PRELIMINARY REPORT No growth at 1 day. Radiology Reports * Exam Date Time Procedure Performing Provider Status 07/12/23 7:[address] Angio Chest DomainUser, Generated; Auth (Verified) Notes: (CT Angio Chest) Reason For Exam: SOB CT Angio Chest PROCEDURE INFORMATION: Exam: CTA Chest With Contrast Exam date and time: 07/12/2023 6:56 PM Age: 68 years old Clinical indication: Shortness of breath TECHNIQUE: Imaging protocol: Computed tomographic angiography of the chest with contrast. Exam focused on the arteries. 3D rendering (Not supervised by radiologist): MIP and/or 3D reconstructed images were created by the technologist. Radiation optimization: All CT scans at this facility use at least one of these dose optimization techniques: automated exposure control; mA and/or kV adjustment per patient size (includes targeted exams where dose is matched to clinical indication); or iterative reconstruction. Contrast material: ISOVUE 370; Contrast volume: 100 ml; Contrast route: INTRAVENOUS (IV); REPORTING DATA: Count of CT and Cardiac NM exams in prior 12 months: This patient has received 2 known CTs and 0 known cardiac nuclear medicine studies in the 12 months prior to the current study. COMPARISON: CT CHEST W CONTRAST 03/08/[address] chest, abdomen, pelvis 08/13/2021 FINDINGS: Pulmonary arteries: No evidence of acute pulmonary embolism. Aorta: Normal caliber thoracic aorta without dissection or aneurysm. Lungs: Area of consolidation and/or atelectasis within the anteromedial right upper lobe. A few scattered small faint patches of infiltrate within the right lung. Previously described 7 mm nodule within the medial right upper lobe (examination dated 03/08/2023) now measures 5 mm on axial image 42, series 5. Interval new 4.5 mm nodule posterior right upper lobe (image 44, series 5). Interval new 4 mm nodule in the anterolateral right lung (image 84, series 5). Compared to the prior CT chest dated 03/08/2023, significant interval decrease in size of previously described right hilar mass or adenopathy. Minimal residual soft tissue density anterior to the right main stem bronchus with approximate 15 mm pretracheal/retrocaval lymph nodes Pleural spaces: No pleural fluid collection. No pneumothorax. Heart: No right ventricular strain. No pericardial effusion. Lymph nodes: Compared to the prior CT chest dated 03/08/2023, significant interval decrease in size of previously described right hilar mass or adenopathy. Minimal residual soft tissue density anterior to the right main stem bronchus with approximate 15 mm pretracheal/retrocaval lymph nodes. Liver: Compared to a prior CT chest with contrast dated 03/08/2023 and 08/13/2021, stable hypodensity within the anterior right lobe of the liver - previously thought to represent a benign hemangioma. Compared to CT chest dated 03/08/[address] abdomen/pelvis dated 08/13/2021, stable hypodensity within the central right lobe of the liver. Gallbladder and bile ducts: Cholelithiasis. Kidneys and ureters: Superomedial left renal cortical stable benign cyst. No follow-up imaging is recommended. Bones/joints: Spinal degenerative changes. Soft tissues: Unremarkable. IMPRESSION: 1. No evidence of acute pulmonary embolism. 2. Compared to the prior CT chest dated 03/08/2023, significant interval decrease in size of previously described right hilar mass or adenopathy. Minimal residual soft tissue density anterior to the right main stem bronchus with approximate 15 mm pretracheal/retrocaval lymph nodes. 3. Area of consolidation and/or atelectasis within the anteromedial right upper lobe. 4. A few scattered small faint patches of infiltrate within the right lung. 5. Previously described 7 mm nodule within the medial right upper lobe (examination dated 03/08/2023) now measures 5 mm on axial image 42, series 5. Interval new 4.5 mm nodule posterior right upper lobe (image 44, series 5). Interval new 4 mm nodule in the anterolateral right lung (image 84, series 5). For patients at low risk (minimal or absent history of smoking and of other known risk factors), no routine follow-up is indicated. For patients at high risk (history of smoking or of other known risk factors), consider optional CT Chest at 12 months. (Reference: Hanna) REFERENCES: Hanna Oviedo et al. Guidelines for Management of Incidental Pulmonary Nodules Detected on CT Images: From the Fleischner Society 2017. Radiology. 2017;284(1):228-243. THIS DOCUMENT HAS BEEN ELECTRONICALLY SIGNED BY NILS HERNANDEZ MD on 07/12/2023 07:46 PM Final Signed by: Nils Hernandez MD Signed (Electronic Signature): 07/12/2023 7:46 pm * Exam Date Time Procedure Performing Provider Status 07/12/23 7:[address] Neck Soft Tissue w/ Contrast Nils Lanier; Megan (Verified) Notes: (CT Neck Soft Tissue w/ Contrast) Reason For Exam: hemoptysis CT Neck Soft Tissue w/ Contrast PROCEDURE INFORMATION: Exam: CT Neck With Contrast Exam date and time: 07/12/2023 6:56 PM Age: 68 years old Clinical indication: Other: Hemoptisis; Additional info: Hemoptysis TECHNIQUE: Imaging protocol: Computed tomography of the neck with contrast. Radiation optimization: All CT scans [...] prior 12 months: This patient has received 2 known CTs and 0 known cardiac nuclear medicine studies in the 12 months prior to the current study. COMPARISON: CT CHEST W CONTRAST 03/08/2023 5:39 PM FINDINGS: Tubes, catheters and devices: Indwelling left chest port present. Mastoid air cells: Poorly pneumatized mastoid air cells bilaterally. Paranasal sinuses: Minimal bilateral ethmoid sinus disease. Pharynx: Unremarkable. No significant tonsillar enlargement. Larynx: The there is mild thickening of the junction of the true and false vocal cords with pinpoint subglottic airway level of the hyoid and infrahyoid. Prevertebral and retropharyngeal spaces: The prominent prevertebral osteophytes are noted at C3-C4 C4-C5 subsequent metallic plate present. Salivary glands: Large ossification of the left submandibular gland with atrophy and edema 16 x 11 mm calcification in the probable obstructed left submandibular duct chronic fashion. Thyroid: Normal. No enlarged or calcified nodules. Lymph nodes: Prominent right paratracheal 12 x 12 mm lymph node. Minimal reactive adenopathy noted. Trachea: Visualized trachea is unremarkable. Lungs: Mild central bronchial thickening and dilatation right upper lung. Subsolid small 5 x 6 mm possible lung nodule or other process. Esophagus: Mild proximal esophagitis noted. Bones/joints: Postop ACDF at C5-C6 7 with fusion of the associated disc spaces. Moderate the a changes temporomandibular joint. Vasculature: Left vertebral artery appears dominant. Mild calcification of the vertebrobasilar artery. There is mild atherosclerotic calcification of the carotid arteries. The aorta demonstrates moderate atherosclerotic calcification. Soft tissues: Unremarkable. No significant soft tissue swelling. IMPRESSION: 1. Moderate thickening of the true and false vocal cords level of the hyoid with airway narrowing consider direct or indirect laryngoscopy follow-up. 2. Large left submandibular gland calcification at left proximal submandibular duct stone with subsequent at atrophic left submandibular gland. 3. 5 x 6 mm subsolid nodule posterior aspect right upper lobe. Follow-up per pulmonology an ENT. 4. Prominent right 12 x 12 mm lymph the node. THIS DOCUMENT HAS BEEN ELECTRONICALLY SIGNED BY SONNY HULL MD on 07/12/2023 07:48 PM Final Signed by: Sonny Hull MD Signed (Electronic Signature): 07/12/2023 7:48 pm Vital Signs Most recent to oldest [Reference Range]: 1 2 3 Temperature Oral [35.8-37.3 Deg C] 36.7 Deg C (07/13/23 2:08 AM) Temperature Temporal Artery [36-38 Deg C] 36.5 Deg C (07/13/23 7:30 AM) 36.6 Deg C (07/12/23 6:06 PM) Peripheral Pulse Rate [60-100 bpm] 77 bpm (07/13/23 8:07 AM) 118 bpm *HI* (07/13/23 7:30 AM) 108 bpm *HI* (07/13/23 2:08 AM) Heart Rate Monitored [60-100 bpm] 95 bpm (07/13/23 1:00 AM) 98 bpm (07/13/23 12:20 AM) 95 bpm (07/12/23 8:26 PM) Respiratory Rate [12-24 br/min] 18 br/min (07/13/23 7:30 AM) 18 br/min (07/13/23 2:07 AM) 14 br/min (07/13/23 1:00 AM) Blood Pressure [90-140/60-90 mmHg] 165/73mmHg *HI* (07/13/23 8:07 AM) 93/65mmHg (07/13/23 7:30 AM) 124/83mmHg (07/13/23 2:08 AM) Mean Arterial Pressure, Cuff [65-140 mmHg] 104 mmHg (07/13/23 8:07 AM) Mean Arterial Pressure Cuff 100 mmHg (07/13/23 8:07 AM) 69 mmHg (07/13/23 1:00 AM) 94 mmHg (07/13/23 12:20 AM) Weight 90.400 kg (07/13/23 2:08 AM) 90.400 kg (07/13/23 2:07 AM) Weight Dosing 90.400 kg (07/13/23 2:08 AM) 90.400 kg (07/13/23 2:07 AM) 91.00 kg (07/12/23 6:25 PM) Weight Estimated 91.00 kg (07/12/23 6:06 PM) Height 176.500 cm (07/13/23 2:08 AM) 176.500 cm (07/13/23 2:07 AM) Height/Length Dosing 176.500 cm (07/13/23 2:08 AM) 176.500 cm (07/13/23 2:07 AM) 178.000 cm (07/12/23 6:25 PM) Body Mass Index 29.020 kg/m2 (07/13/23 2:08 AM) 29.020 kg/m2 (07/13/23 2:07 AM) Height/Length Estimated 178.000 cm (07/12/23 6:06 PM) Social History Social History Type Response Tobacco Former tobacco user Tobacco Use:. Sex Hospital Discharge Instructions Patient Education 07/13/2023 10:12:28 Community-Acquired Pneumonia, Adult Community-Acquired Pneumonia, Adult Pneumonia is a lung infection that causes inflammation and the buildup of mucus and fluids in the lungs. This may cause coughing and difficulty breathing. Community-acquired pneumonia is pneumonia that develops in people who are not, and have not recently been, in a hospital or other health care facility. Usually, pneumonia develops as a result of an illness that is caused by a virus, such as the commoncold and the flu (influenza). It can also be caused by bacteria or fungi. While the common cold andinfluenza can pass from person to person (are contagious), pneumonia itself is not considered contagious. What are the causes? This condition may be caused by: ??? Viruses. ??? Bacteria. ??? Fungi, such as molds or mushrooms. What increases the risk? The following factors may make you more likely to develop this condition: ??? Having certain medical conditions, such as: ??? A long-term (chronic) disease, which may include chronic obstructive pulmonary disease (COPD), asthma, heart failure, cystic fibrosis, diabetes, kidney disease, sickle cell disease, and human immunodeficiency virus (HIV). ??? A condition that increases the risk of breathing in (aspirating) mucus and other fluids from your mouth and nose. ??? A weakened body defense system (immune system). ??? Having had your spleen removed (splenectomy). The spleen is the organ that helps fight germs and infections. ??? Not cleaning your teeth and gums well (poor dental hygiene). ??? Using tobacco products. ??? Traveling to places where germs that cause pneumonia are present. ??? Being near certain animals, or animal habitats, that have germs that cause pneumonia. ??? Being older than 65 years of age. What are the signs or symptoms? Symptoms of this condition include: ??? A dry cough or a wet (productive) cough. ??? A fever. ??? Sweating or chills. ??? Chest pain, especially when breathing deeply or coughing. ??? Fast breathing, difficulty breathing, or shortness of breath. ??? Tiredness (fatigue). ??? Muscle aches. How is this diagnosed? This condition may be diagnosed based on your medical history or a physical exam. You may also havetests, including: ??? Chest X-rays. ??? Tests of the level of oxygen and other gases in your blood. ??? Tests of: ??? Your blood. ??? Mucus from your lungs (sputum). ??? Fluid around your lungs (pleural fluid). ??? Your urine. If your pneumonia is severe, other tests may be done to learn more about the cause. How is this treated? Treatment for this condition depends on many factors, such as the cause of your pneumonia, your medicines, and other medical conditions that you have. For most adults, pneumonia may be treated at home. In some cases, treatment must happen in a hospital and may include: ??? Medicines that are given by mouth (orally) or through an IV, including: ??? Antibiotic medicines, if bacteria caused the pneumonia. ??? Medicines that kill viruses (antiviral medicines), if a virus caused the pneumonia. ??? Oxygen therapy. Severe pneumonia, although rare, may require the following treatments: ??? Mechanical ventilation.This procedure uses a machine to help you breathe if you cannot breathe well on your own or maintain a safe level of blood oxygen. ??? Thoracentesis. This procedure removes any buildup of pleural fluid to help with breathing. Follow these instructions at home: Medicines ??? Take lekj-fsr-mndofuk and prescription medicines only as told by your health care provider. ??? Take cough medicine only if you have trouble sleeping. Cough medicine can prevent your body from removing mucus from your lungs. ??? If you were prescribed an antibiotic medicine, take it as told by your health care provider. Donot stop taking the antibiotic even if you start to feel better. Lifestyle ??? Do not drink alcohol. ??? Do not use any products that contain nicotine or tobacco, such as cigarettes, e-cigarettes, andchewing tobacco. If you need help quitting, ask your health care provider. ??? Eat a healthy diet. This includes plenty of vegetables, fruits, whole grains, low-fat dairy products, and lean protein. General instructions ??? Rest a lot and get at least 8 hours of sleep each night. ??? Sleep in a partly upright position at night. Place a few pillows under your head or sleep in a reclining chair. ??? Return to your normal activities as told by your health care provider. Ask your health care provider what activities are safe for you. ??? Drink enough fluid to keep your urine pale yellow. This helps to thin the mucus in your lungs. ??? If your throat is sore, gargle with a salt???water mixture 3???4 times a day or as needed. To make a salt???water mixture, completely dissolve ?1 tsp (3???6 g) of salt in 1 cup (237 mL) of warm water. ??? Keep all follow-up visits as told by your health care provider. This is important. How is this prevented? You can lower your risk of developing community-acquired pneumonia by: ??? Getting the pneumonia vaccine. There are different types and schedules of pneumonia vaccines. Ask your health care provider which option is best for you. Consider getting the pneumonia vaccine if: ??? You are older than 65 years of age. ??? You are 19???65 years of age and are receiving cancer treatment, have chronic lung disease, or have other medical conditions that affect your immune system. Ask your health care provider if this applies to you. ??? Getting your influenza vaccine every year. Ask your health care provider which type of vaccine is best for you. ??? Getting regular dental checkups. ??? Washing your hands often with soap and water for at least 20 seconds. If soap and water are notavailable, use hand client success manager. Contact a health care provider if you have: ??? A fever. ??? Trouble sleeping because you cannot control your cough with cough medicine. Get help right away if: ??? Your shortness of breath becomes worse. ??? Your chest pain increases. ??? Your sickness becomes worse, especially if you are an older adult or have a weak immune system. ??? You cough up blood. These symptoms may represent a serious problem that is an emergency. Do not wait to see if the symptoms will go away. Get medical help right away. Call your local emergency services (911 in the [place] Do not drive yourself to the hospital. Summary ??? Pneumonia is an infection of the lungs. ??? Community-acquired pneumonia develops in people who have not been in the hospital. It can be caused by bacteria, viruses, or fungi. ??? This condition may be treated with antibiotics or antiviral medicines. ??? Severe pneumonia may require a hospital stay and treatment to help with breathing. This information is not intended to replace advice given to you by your health care provider. Make sure you discuss any questions you have with your health care provider. Document Revised: 08/13/2020 Document Reviewed: 08/13/2020 [employer] Patient Education ?? 2022 [employer]. Follow Up Care 07/12/2023 18:06:11 With:ILANA Rhoades Address: [address] [place] [id number] When:1 month Comments:July 21, 2023 at 1:45 Pharmacology Note * Ronald Rhodes: PERFORM Event Display: Pharmacy Note Authored Date: [id number] med hx via SS review and interview with pt and neymar who provides majority of hx. good hx. Discharge instructions * Brooke Eduardo: PERFORM Event Display: Discharge Instructions Authored Date: [id number] RADHA ECHEVERRIA :1955 Age:68 years Sex:Male Visit Date:07/12/2023 Primary Care Physician: IL[facility] Discharge Instructions We would like to thank you for allowing us to assist you with your healthcare needs. The following includes patient education materials and information regarding your injury/illness. Your Next Steps Scheduled Future Appointments Wednesday 8:00 AM EDT ?? Follow Up Appointments Follow Up with??ILANA Rhoades When:??Within 1 month Why: July 21, 2023 at 1:45 Where: [address] [place] [id number]- Medications What How Much When Instructions Next Dose New levoFLOXacin (levoFLOXacin 750 mg oral tablet) 1 tab Oral (given by mouth) Every day Duration: 5 Days Pickup at [facility] Unchanged amLODIPine 10 Milligrams Oral (given by mouth) Every day Unchanged hydrOXYzine 25 Milligrams Oral (given by mouth) Every night at bedtime Unchanged losartan (losartan 100 mg oral tablet) 50 Milligrams Oral (given by mouth) Every day Unchanged multivitamin (Multi Vitamin+) 1 tab Oral (given by mouth) Every day Unchanged tamsulosin (tamsulosin 0.4 mg oral capsule) 2 Capsules Oral (given by mouth) Every day Pharmacy Information [facility]: [address], [place] [id number] [phone] ?? What How Much When Comments Stop Taking ibuprofen (ibuprofen 800 mg oral tablet) 1 tab Oral (given by mouth) 3 times a day Your Summary Your Care Team Admitting Physician - Tarik CHERY, Yeison Mena Attending Physician - Tarik CHERY, Yeison Mena Primary Care Physician - ILANA Rhoades Your Diagnosis Coughing blood Pneumonia Small cell lung cancer Problems Ongoing - Any problem that you are currently receiving treatment for. Small cell lung cancer Tests Performed/Pending Automated Diff Blood Culture?-- Results Pending -- BMP CBC w/ Diff CMP PT/ INR PTT CT Angio Chest CT Neck Soft Tissue w/ Contrast Discharge Vitals Temperature??(Temporal Artery) 97.7 ??F (36.5 ??C) Heart Rate??(Peripheral) 77 Respiratory Rate?? 18 Blood Pressure?? 165/73?? Height?? 69.49 in (176.500 cm) Weight?? 199.33 lb (90.400 kg) BMI?? 29.020 Allergies penicillins Education Materials Community-Acquired Pneumonia, Adult Pneumonia is a lung infection that causes inflammation and the buildup of mucus and fluids in the lungs. This may cause coughing and difficulty breathing. Community-acquired pneumonia is pneumonia that develops in people who are not, and have not recently been, in a hospital or other health care facility. Usually, pneumonia develops as a result of an illness that is caused by a virus, such as the commoncold and the flu (influenza). It can also be caused by bacteria or fungi. While the common cold andinfluenza can pass from person to person (are contagious), pneumonia itself is not considered contagious. What are the causes? This condition may be caused by: ? Viruses. ? Bacteria. ? Fungi, such as molds or mushrooms. What increases the risk? The following factors may make you more likely to develop this condition: ? Having certain medical conditions, such as: ? A long-term (chronic) disease, which may include chronic obstructive pulmonary disease (COPD), asthma, heart failure, cystic fibrosis, diabetes, kidney disease, sickle cell disease, and human immunodeficiency virus (HIV). ? A condition that increases the risk of breathing in (aspirating) mucus and other fluids from your mouth and nose. ? A weakened body defense system (immune system). ? Having had your spleen removed (splenectomy). The spleen is the organ that helps fight germs and infections. ? Not cleaning your teeth and gums well (poor dental hygiene). ? Using tobacco products. ? Traveling to places where germs that cause pneumonia are present. ? Being near certain animals, or animal habitats, that have germs that cause pneumonia. ? Being older than 65 years of age. What are the signs or symptoms? Symptoms of this condition include: ? A dry cough or a wet (productive) cough. ? A fever. ? Sweating or chills. ? Chest pain, especially when breathing deeply or coughing. ? Fast breathing, difficulty breathing, or shortness of breath. ? Tiredness (fatigue). ? Muscle aches. How is this diagnosed? This condition may be diagnosed based on your medical history or a physical exam. You may also havetests, including: ? Chest X-rays. ? Tests of the level of oxygen and other gases in your blood. ? Tests of: ? Your blood. ? Mucus from your lungs (sputum). ? Fluid around your lungs (pleural fluid). ? Your urine. If your pneumonia is severe, other tests may be done to learn more about the cause. How is this treated? Treatment for this condition depends on many factors, such as the cause of your pneumonia, your medicines, and other medical conditions that you have. For most adults, pneumonia may be treated at home. In some cases, treatment must happen in a hospital and may include: ? Medicines that are given by mouth (orally) or through an IV, including: ? Antibiotic medicines, if bacteria caused the pneumonia. ? Medicines that kill viruses (antiviral medicines), if a virus caused the pneumonia. ? Oxygen therapy. Severe pneumonia, although rare, may require the following treatments: ? Mechanical ventilation.This procedure uses a machine to help you breathe if you cannot breathe wellon your own or maintain a safe level of blood oxygen. ? Thoracentesis. This procedure removes any buildup of pleural fluid to help with breathing. Follow these instructions at home: Medicines ? Take jssj-zgt-vxqbzmj and prescription medicines only as told by your health care provider. ? Take cough medicine only if you have trouble sleeping. Cough medicine can prevent your body from removing mucus from your lungs. ? If you were prescribed an antibiotic medicine, take it as told by your health care provider. Do notstop taking the antibiotic even if you start to feel better. Lifestyle ? Do not drink alcohol. ? Do not use any products that contain nicotine or tobacco, such as cigarettes, e- cigarettes, and chewing tobacco. If you need help quitting, ask your health care provider. ? Eat a healthy diet. This includes plenty of vegetables, fruits, whole grains, low-fat dairy products, and lean protein. General instructions ? Rest a lot and get at least 8 hours of sleep each night. ? Sleep in a partly upright position at night. Place a few pillows under your head or sleep in a reclining chair. ? Return to your normal activities as told by your health care provider. Ask your health care provider what activities are safe for you. ? Drink enough fluid to keep your urine pale yellow. This helps to thin the mucus in your lungs. ? If your throat is sore, gargle with a salt???water mixture 3???4 times a day or as needed. To make a salt???water mixture, completely dissolve ?1 tsp (3???6 g) of salt in 1 cup (237 mL) of warm water. ? Keep all follow-up visits as told by your health care provider. This is important. How is this prevented? You can lower your risk of developing community-acquired pneumonia by: ? Getting the pneumonia vaccine. There are different types and schedules of pneumonia vaccines. Ask your health care provider which option is best for you. Consider getting the pneumonia vaccine if: ? You are older than 65 years of age. ? You are 19???65 years of age and are receiving cancer treatment, have chronic lung disease, or haveother medical conditions that affect your immune system. Ask your health care provider if this applies to you. ? Getting your influenza vaccine every year. Ask your health care provider which type of vaccine is best for you. ? Getting regular dental checkups. ? Washing your hands often with soap and water for at least 20 seconds. If soap and water are not available, use hand client success manager. Contact a health care provider if you have: ? A fever. ? Trouble sleeping because you cannot control your cough with cough medicine. Get help right away if: ? Your shortness of breath becomes worse. ? Your chest pain increases. ? Your sickness becomes worse, especially if you are an older adult or have a weak immune system. ? You cough up blood. These symptoms may represent a serious problem that is an emergency. Do not wait to see if the symptoms will go away. Get medical help right away. Call your local emergency services (911 in the [place] Do not drive yourself to the hospital. Summary ? Pneumonia is an infection of the lungs. ? Community-acquired pneumonia develops in people who have not been in the hospital. It can be causedby bacteria, viruses, or fungi. ? This condition may be treated with antibiotics or antiviral medicines. ? Severe pneumonia may require a hospital stay and treatment to help with breathing. This information is not intended to replace advice given to you by your health care provider. Make sure you discuss any questions you have with your health care provider. Document Revised: 08/13/2020 Document Reviewed: 08/13/2020 [employer] Patient Education ?? 2022 [employer] Medication Information levofloxacin (oral)?? (LLOYD villalobos FLOX a sin) ? What is the most important information I should know about levofloxacin? Levofloxacin can cause serious side effects,??including tendon problems, nerve damage, serious moodor behavior changes, or low blood sugar. ?? Stop using this medicine and call your doctor at once if you have symptoms such as:?headache, hunger, irritability, numbness, tingling, burning pain, confusion, agitation, paranoia, problems with memory or concentration, thoughts of suicide, or sudden pain or movement problems in any of your joints.? In rare cases, levofloxacin may cause damage to your aorta, which could lead to dangerous bleeding or .?Get emergency medical help if you have severe and constant pain in your chest, stomach,or back. ?? What is levofloxacin? Levofloxacin is a fluoroquinolone (gxtr-h-VONS-o-lone) antibiotic that fights bacteria in the body.??Levofloxacin is used to treat different types of bacterial infections. ??Levofloxacin is also used to treat people who have been exposed to anthrax or certain types of plague. ?? Fluoroquinolone antibiotics can cause serious or disabling side effects.?Levofloxacin should be used only for infections that cannot be treated with a safer antibiotic. ?? Levofloxacin may also be used for purposes not listed in this medication guide. ?? What should I discuss with my healthcare provider before taking levofloxacin? You should not use this medicine if you are allergic to levofloxacin or other fluoroquinolones (ciprofloxacin, gemifloxacin, moxifloxacin, norfloxacin, ofloxacin, and others). ?? Levofloxacin may cause swelling or tearing of a tendon (the fiber that connects bones to muscles inthe body), especially in the Achilles' tendon of the heel. This can happen during treatment or up to several months after you stop taking levofloxacin. ??Tendon problems may be more likely in certainpeople (children and older adults, or people who use steroid medicine or have had an organ transplant). ? Tell your doctor if you have ever had: ?tendon problems, bone problems, arthritis or other joint problems (especially in children); ?blood circulation problems, aneurysm, narrowing or hardening of the arteries; ?heart problems, high blood pressure; ?a genetic disease such as Marfan syndrome or Ehler's-Danlos syndrome; ?diabetes; ?a muscle or nerve disorder, such as myasthenia gravis; ?kidney disease; ?seizures or epilepsy; ?a head injury or brain tumor; ?long QT syndrome (in you or a family member); or ?low levels of potassium in your blood (hypokalemia). ?? Do not give this medicine to a child without medical advice. ?? It is not known whether this medicine will harm an unborn baby. Tell your doctor if you are . ?? You should not breast-feed while using this medicine. ?? How should I take levofloxacin? Follow all directions on your prescription label and read all medication guides or instruction sheets. ??Use the medicine exactly as directed. ? Take levofloxacin with water, at the same time each day. ??Drink extra fluids to keep your kidneys working properly while taking this medicine. ? You may take levofloxacin??tablets??with or without food. ?? Take levofloxacin??oral solution (liquid)??on an empty stomach, at least 1 hour before or 2 hours after a meal. ?? Measure??liquid medicine??carefully. Use the dosing syringe provided, or use a medicine dose-measuring device (not a kitchen spoon). ?? Use this medicine for the full prescribed length of time, even if your symptoms quickly improve. ??Skipping doses can increase your risk of infection that is resistant to medication. ??Levofloxacin will not treat a viral infection such as the flu or a common cold. ?? Do not share levofloxacin with another person. ?? This medicine may affect a drug-screening urine test and you may have false results. ??Tell the laboratory staff that you use levofloxacin. ?? Store at room temperature away from moisture and heat. ??Keep the bottle tightly closed when not inuse. ?? What happens if I miss a dose? Take the medicine as soon as you can, but skip the missed dose if it is almost time for your next dose.??Do not??take two doses at one time.? What happens if I overdose? Seek emergency medical attention or call the [employer] Help line at . ? What should I avoid while taking levofloxacin? Avoid driving or hazardous activity until you know how this medicine will affect you. ??Your reactions could be impaired. ?? Antibiotic medicines can cause diarrhea, which may be a sign of a new infection. ??If you have diarrhea that is watery or bloody, call your doctor before using anti-diarrhea medicine.? Levofloxacin could make you sunburn more easily. ??Avoid sunlight or tanning beds. Wear protective clothing and use sunscreen (SPF 30 or higher) when you are outdoors. ??Tell your doctor if you have severe burning, redness, itching, rash, or swelling after being in the sun. ?? What are the possible side effects of levofloxacin? Get emergency medical help if you have??signs of an allergic reaction??(hives, difficult breathing,swelling in your face or throat)??or a severe skin reaction??(fever, sore throat, burning in your eyes, skin pain, red or purple skin rash that spreads and causes blistering and peeling). ?? Levofloxacin can cause serious side effects,??including tendon problems, side effects on your nerves (which may cause permanent nerve damage), serious mood or behavior changes (after just one dose), or low blood sugar (which can lead to coma). ?? Stop taking this medicine and call your doctor at once if you have: ?low blood sugar--headache, hunger, sweating, irritability, dizziness, nausea, fast heart rate, or feeling anxious or shaky; ?nerve symptoms in your hands, arms, legs, or feet--numbness, weakness, tingling, burning pain; ?serious mood or behavior changes--nervousness, confusion, agitation, paranoia, hallucinations, memory problems, trouble concentrating, thoughts of suicide; or ?signs of tendon rupture--sudden pain, swelling, bruising, tenderness, stiffness, movement problems, or a snapping or popping sound in any of your joints (rest the joint until you receive medical care or instructions). ?? In rare cases, levofloxacin may cause damage to your aorta, the main blood artery of the body. ??This could lead to dangerous bleeding or .?Get emergency medical help if you have severe and constant pain in your chest, stomach, or back. ?? Stop taking levofloxacin and call your doctor at once if you have:?severe stomach pain, diarrhea that is watery or bloody; ?fast or pounding heartbeats, fluttering in your chest, shortness of breath, and sudden dizziness (like you might pass out); ?the first sign of any skin rash, no matter how mild; ?muscle weakness, breathing problems; ?seizure (convulsions);?increased pressure inside the skull--severe headaches, ringing in your ears, dizziness, nausea,vision problems, pain behind your eyes; or ?liver problems--upper stomach pain, loss of appetite, dark urine, gricel- colored stools, jaundice(yellowing of the skin or eyes). ?? Common side effects may include: ?nausea, constipation, diarrhea; ?headache, dizziness; or ?trouble sleeping. ?? This is not a complete list of side effects and others may occur. Call your doctor for medical advice about side effects. You may report side effects to FDA at 9-584-DIU-7614. ? What other drugs will affect levofloxacin? Some medicines can make levofloxacin much less effective when taken at the same time. ??If you takeany of the following medicines, take your levofloxacin dose 2 hours before or 2 hours after you take the other medicine.?antacids that contain magnesium or aluminum (such as Maalox, Mylanta, or Rolaids), or the ulcermedicine sucralfate (Carafate); ?didanosine (Videx) powder or chewable tablets; or ?vitamin or mineral supplements that contain aluminum, iron, magnesium, or zinc. ?? Tell your doctor about all your other medicines, especially: ?theophylline; ?a diuretic or 'water pill'; ?heart rhythm medication; ?insulin or oral diabetes medicine (check your blood sugar regularly); ?medicine to treat depression or mental illness;?steroid medicine (such as prednisone);?a blood thinner--warfarin, Coumadin, Jantoven; or ?NSAIDs (nonsteroidal anti-inflammatory drugs)--aspirin, ibuprofen (Advil, Motrin), naproxen (Aleve), celecoxib, diclofenac, indomethacin, meloxicam, and others. ?? This list is not complete. ??Other drugs may affect levofloxacin, including prescription and qayl-hof-edqffnx medicines, vitamins, and herbal products. ??Not all possible drug interactions are listedhere. ?? Where can I get more information? Your pharmacist can provide more information about levofloxacin. ?? Remember, keep this and all other medicines out of the reach of children, never share your medicines with others, and use this medication only for the indication prescribed. ?? Every effort has been made to ensure that the information provided by [employer]') is accurate, up-to-date, and complete, but no guarantee is made to that effect. Drug information contained herein may be time sensitive. [employer] information has been compiled for use by healthcare practitioners and consumers in the [place] and therefore [employer] does not warrant that uses outside of the [place] are appropriate, unless specifically indicated otherwise. [employer] drug information does not endorse drugs, diagnose patients or recommend therapy. [employer] drug information isan informational resource designed to assist licensed healthcare practitioners in caring for their p atients and/or to serve consumers viewing this service as a supplement to, and not a substitute for, the expertise, skill, knowledge and judgment of healthcare practitioners. The absence of a warningfor a given drug or drug combination in no way should be construed to indicate that the drug or drug combination is safe, effective or appropriate for any given patient. [employer] does not assume any responsibility for any aspect of healthcare administered with the aid of information [employer] provides. The information contained herein is not intended to cover all possible uses, directions, precautions, warnings, drug interactions, allergic reactions, or adverse effects. If you have questions about the drugs you are taking, check with your doctor, nurse or pharmacist.? Copyright 1836-9941 [employer]. Version: 16.. Revision Date: 06/24/2023. ? Patient/Relocation Commissioner Signature Patient Name:RADHA ECHEVERRIA I have received this information and my questions have been answered. Patient/Relocation Commissioner Name: Patient/Relocation Commissioner Signature: Relationship to Patient: Witness Name/Signature: Date: Electronically Signed on: 07/13/2023 11:27 EDTSigned by:DT * Event Display: Discharge Instructions Physician Emergency department Note * Dereck CHERY, Olvin F: PERFORM Event Display: ED Note Physician Authored Date: [id number] Clarke from [facility] regarding the CT findings and sensation of bleeding from the throat on this patient. ENT felt that there was not any acute procedure that would warrant emergent transfer and deferring treatment tonight. She felt that the fact that the vocal cords were very symmetric that this could be just a manifestation of the phase of the CAT scan study itself. As patient does not have stridor or difficulty speaking or breathing she felt that emergent transfer was not indicated. I let the hospitalist know and patient was admitted as per previous plans by Nixon Hernandes Electronically Signed on 07/12/23 10:52 PM Dereck CHERY, Olvin Peacock * ILANA Dukes: PERFORM Event Display: ED Note Physician Authored Date: [id number] RADHA ECHEVERRIA :1955 Age:68 years Sex:Male Visit Date:07/12/2023 Primary Care Physician: ILANA Rhoades Basic Information Time Seen: ILANA Dukes / 07/12/2023 18:10 Chief Complaint pt reports started coughing up blood about an hour ago. Dx lung cancer. denies chest pain/SOB History Of Present Illness: Patient is a 68 year old male with a history of lung and prostate cancer and SIADH here for hemoptysis that began acutely 1 hour ago. He has been coughing up marco red blood. Says??he??can feel the blood in the back of his throat. ??He was asymptomatic prior to this episode and is not experiencing any dyspnea or chest pains. Afebrile. He completed his course of radiation for the tumor on the SVC 4 weeks ago and his last chemotherapywas 2 weeks ago. He has been afebrile. Review of Systems: See HPI Physical Exam Vitals & Measurements T:??36.6?C ??(Temporal Artery)?? HR:??96??(Peripheral)?? HR:??95??(Monitored)?? RR:??14?? BP:??137/73?? SpO2:??95%?? HT:??178.000??cm?? WT:??91.00??kg??(Estimated)?? O2 Flow Rate:??4?? O2 Therapy:??Nasal cannula?? General: Patient is alert and engaging, appears well. Is in no acute distress. Speaking comfortablyin full sentences.?? Constitutional: No fevers, chills or diaphoresis.?? HEENT: Head normocephalic and atraumatic. Neck supple with FROM w/o lymphadenopathy or JVD. Tracheamidline. No c-spine tenderness. Examined the tissue paper and there is a moderate amount, approximately??5 cc of marco red blood on the tissue paper. Respiratory: ??No obvious work of breathing, regular rate. BS equal b/l, clear to auscultation. Cardiovascular: Heart regular rate and rhythm w/o murmurs, rubs or gallops. No peripheral edema present.?? Extremities: No obvious deformities. FROM.?? Integumentary: Skin warm and pink. No rashes or ecchymosis present.?? Neuro: CN III-XII grossly intact.?? Psychiatric: acting appropriate for age and circumstance. Normal mood without obvious ??affect.?? Medical Decision Making: Patient is 68 year old male with extensive history of lung??cancer history here for hemoptysis for the past hour. His oxygen saturation was 88 on room air so he ??was placed on 4 L oxygen during triage. He is tachycardic at 106 bpm, afebrile at 36.6 C and normotensive at 129/87. EKG shows sinus tachycardia at a of rate 99.?? Borderline abnormal T in the anterior lateral leads. ??QTc of 471. Concern for PE, pneumonia, malignancy or esophageal varies. He is not showing any signs of airway obstruction including stridor/ sterdor, he is not in the sniffing position and he is managing his own secretions. CT of the chest was obtained??with no evidence of a PE. ??There was consolidation in the??right lower lobe as well as new nodules when compared to the previous study. ??Because the patient was describing??a sensation of blood dripping down??his throat??I did obtain a scan of??the neck as well. ??This showed moderate thickening of the??vocal cords at the hyoid. ?? 20:15 spoke with hospitalist about a plan to admit. There is a concern about the thickening at the vocal cords causing airway obstructions so an oncology consult was advised. 20:30 Consult placed with oncology. ??He is a patient of Dr. Espinoza at [facility]. 21:10: Spoke with Dr. Vazquez who reviewed the scans and suggested a consult with ENT. ENT called and waiting for the consult. ? Procedure No Qualifying Data Assessment/Plan Plan is to admit however we are waiting on an ENT consult in regards to the thickening at the vocalcords. He has not been started on an antibiotic at this time. Care of this patient is being transferred to Dr. Harden at 22:27. Medication Reconciliation Unchanged [id number] Milligrams every day. ?? [id number] Milligrams every night at bedtime. ?? ibuprofen (ibuprofen 800 mg oral tablet)1 tab Oral (given by mouth) 3 times a day. ?? losartan (losartan 100 mg oral tablet)50 Milligrams Oral (given by mouth) every day. ?? multivitamin (Multi Vitamin+)1 tab Oral (given [...] tobacco user Tobacco Use:. Diagnostic Results CT Angio Chest 07/12/2023 19:[address] Neck Soft Tissue w/ Contrast 07/12/2023 19:[address] Angio Chest ?? 07/12/23 18:56:35 PROCEDURE INFORMATION: Exam: CTA Chest With Contrast Exam date and time: 07/12/2023 6:56 PM Age: 68 years old Clinical indication: Shortness of breath ?? TECHNIQUE: Imaging protocol: Computed tomographic angiography of the chest with contrast. Exam focused on the arteries. 3D rendering (Not supervised by radiologist): MIP and/or 3D reconstructed images were created by the technologist. Radiation optimization: All CT scans at this facility use at least one of these dose optimization techniques: automated exposure control; mA and/or kV adjustment per patient size (includes targeted exams where dose is matched to clinical indication); or iterative reconstruction. Contrast material: ISOVUE 370; Contrast volume: 100 ml; Contrast route: INTRAVENOUS (IV); ?? REPORTING DATA: Count of CT and Cardiac NM exams in prior 12 months: This patient has received 2 known CTs and 0 known cardiac nuclear medicine studies in the 12 months prior to the current study. ?? COMPARISON: CT CHEST W CONTRAST 03/08/[address] chest, abdomen, pelvis 08/13/2021 ?? FINDINGS: Pulmonary arteries: No evidence of acute pulmonary embolism. Aorta: Normal caliber thoracic aorta without dissection or aneurysm. ?? Lungs: Area of consolidation and/or atelectasis within the anteromedial right upper lobe. A few scattered small faint patches of infiltrate within the right lung. Previously described 7 mm nodule within the medial right upper lobe (examination dated 03/08/2023) now measures 5 mm on axial image 42, series 5. Interval new 4.5 mm nodule posterior right upper lobe (image 44, series 5). Interval new 4 mm nodule in the anterolateral right lung (image 84, series 5). Compared to the prior CT chest dated 03/08/2023, significant interval decrease in size of previously described right hilar mass or adenopathy. Minimal residual soft tissue density anterior to the right main stem bronchus with approximate 15 mm pretracheal/retrocaval lymph nodes Pleural spaces: No pleural fluid collection. No pneumothorax. Heart: No right ventricular strain. No pericardial effusion. Lymph nodes: Compared to the prior CT chest dated 03/08/2023, significant interval decrease in size of previously described right hilar mass or adenopathy. Minimal residual soft tissue density anterior to the right main stem bronchus with approximate 15 mm pretracheal/retrocaval lymph nodes. ?? Liver: Compared to a prior CT chest with contrast dated 03/08/2023 and 08/13/2021, stable hypodensity within the anterior right lobe of the liver - previously thought to represent a benign hemangioma. Compared to CT chest dated 03/08/[address] abdomen/pelvis dated 08/13/2021, stable hypodensity within the central right lobe of the liver. Gallbladder and bile ducts: Cholelithiasis. Kidneys and ureters: Superomedial left renal cortical stable benign cyst. No follow-up imaging is recommended. Bones/joints: Spinal degenerative changes. Soft tissues: Unremarkable. ?? IMPRESSION: 1. No evidence of acute pulmonary embolism. 2. Compared to the prior CT chest dated 03/08/2023, significant interval decrease in size of previously described right hilar mass or adenopathy. Minimal residual soft tissue density anterior to the right main stem bronchus with approximate 15 mm pretracheal/retrocaval lymph nodes. 3. Area of consolidation and/or atelectasis within the anteromedial right upper lobe. 4. A few scattered small faint patches of infiltrate within the right lung. 5. Previously described 7 mm nodule within the medial right upper lobe (examination dated 03/08/2023) now measures 5 mm on axial image 42, series 5. Interval new 4.5 mm nodule posterior right upper lobe (image 44, series 5). Interval new 4 mm nodule in the anterolateral right lung (image 84, series 5). For patients at low risk (minimal or absent history of smoking and of other known risk factors), no routine follow-up is indicated. For patients at high risk (history of smoking or of other known risk factors), consider optional CT Chest at 12 months. (Reference: Hanna) ? REFERENCES: Hanna Oviedo et al. Guidelines for Management of Incidental Pulmonary Nodules Detected on CT Images: From the Fleischner Society 2017. Radiology. 2017;284(1):228-243. ? THIS DOCUMENT HAS BEEN ELECTRONICALLY SIGNED BY NILS HERNANDEZ MD on 07/12/2023 07:46 PM ?? Signed By: Nils Hernandez MD ?? CT Neck Soft Tissue w/ Contrast ?? 07/12/23 18:56:35 PROCEDURE INFORMATION: Exam: CT Neck With Contrast Exam date and time: 07/12/2023 6:56 PM Age: 68 years old Clinical indication: Other: Hemoptisis; Additional info: Hemoptysis ?? TECHNIQUE: Imaging protocol: Computed tomography of the neck with contrast. Radiation optimization: All CT scans [...] prior 12 months: This patient has received 2 known CTs and 0 known cardiac nuclear medicine studies in the 12 months prior to the current study. ?? COMPARISON: CT CHEST W CONTRAST 03/08/2023 5:39 PM ?? FINDINGS: Tubes, catheters and devices: Indwelling left chest port present. ?? Mastoid air cells: Poorly pneumatized mastoid air cells bilaterally. Paranasal sinuses: Minimal bilateral ethmoid sinus disease. Pharynx: Unremarkable. No significant tonsillar enlargement. Larynx: The there is mild thickening of the junction of the true and false vocal cords with pinpoint subglottic airway level of the hyoid and infrahyoid. Prevertebral and retropharyngeal spaces: The prominent prevertebral osteophytes are noted at C3-C4 C4-C5 subsequent metallic plate present. Salivary glands: Large ossification of the left submandibular gland with atrophy and edema 16 x 11 mm calcification in the probable obstructed left submandibular duct chronic fashion. Thyroid: Normal. No enlarged or calcified nodules. Lymph nodes: Prominent right paratracheal 12 x 12 mm lymph node. Minimal reactive adenopathy noted. ?? Trachea: Visualized trachea is unremarkable. Lungs: Mild central bronchial thickening and dilatation right upper lung. Subsolid small 5 x 6 mm possible lung nodule or other process. Esophagus: Mild proximal esophagitis noted. Bones/joints: Postop ACDF at C5-C6 7 with fusion of the associated disc spaces. Moderate the a changes temporomandibular joint. Vasculature: Left vertebral artery appears dominant. Mild calcification of the vertebrobasilar artery. There is mild atherosclerotic calcification of the carotid arteries. The aorta demonstrates moderate atherosclerotic calcification. Soft tissues: Unremarkable. No significant soft tissue swelling. ?? IMPRESSION: 1. Moderate thickening of the true and false vocal cords level of the hyoid with airway narrowing consider direct or indirect laryngoscopy follow-up. 2. Large left submandibular gland calcification at left proximal submandibular duct stone with subsequent at atrophic left submandibular gland. 3. 5 x 6 mm subsolid nodule posterior aspect right upper lobe. Follow-up per pulmonology an ENT. 4. Prominent right 12 x 12 mm lymph the node. ? THIS DOCUMENT HAS BEEN ELECTRONICALLY SIGNED BY SONNY HULL MD on 07/12/2023 07:48 PM ?? Signed By: Sonny Hull MD Lab Results CBC and Differential?? LATEST RESULTS?? HISTORICAL RESULTS?? WBC?? 07/12/23 18:18?? 8.4?? 06/21/23?? 2.1 ??Critical?? RBC?? 07/12/23 18:18?? 3.86 ??Low?? 06/21/23?? 3.31 ??Low?? Hgb?? 07/12/23 18:18?? 11.7 ??Low?? 06/21/23?? 9.9 ??Low?? Hct?? 07/12/23 18:18?? 35.6 ??Low?? 06/21/23?? 29.7 ??Low?? MCV?? 07/12/23 18:18?? 92.2?? 06/21/23?? 89.7?? MCH?? 07/12/23 18:18?? 30.3?? 06/21/23?? 29.9?? MCHC?? 07/12/23 18:18?? 32.9?? 06/21/23?? 33.3?? RDW-CV?? 07/12/23 18:18?? 14.6 ??High?? 06/21/23?? 15.0 ??High?? Platelets?? 07/12/23 18:18?? 226?? 06/21/23?? 104 ??Low?? MPV?? 07/12/23 18:18?? 10.1?? 06/21/23?? 9.5?? Neutro Auto?? 07/12/23 18:18?? 59.0?? 03/08/23?? 70.7?? Lymph Auto?? 07/12/23 18:18?? 20.8?? 03/08/23?? 16.3 ??Low?? [place] Auto?? 07/12/23 18:18?? 15.6 ??High?? 03/08/23?? 9.9 ??High?? Eos, Auto?? 07/12/23 18:18?? 2.90?? 03/08/23?? 2.30?? Basophil Auto?? 07/12/23 18:18?? 0.7?? 03/08/23?? 0.4?? Imm Gran Auto?? 07/12/23 18:18?? 1.0 ??High?? 03/08/23?? 0.4?? Neutro Absolute?? 07/12/23 18:18?? 5.0?? 03/08/23?? 5.6?? Lymph Absolute?? 07/12/23 18:18?? 1.8?? 03/08/23?? 1.3?? [place] Absolute?? 07/12/23 18:18?? 1.3 ??High?? 03/08/23?? 0.8 ??High?? Eos Absolute?? 07/12/23 18:18?? 0.2?? 03/08/23?? 0.2?? Baso Absolute?? 07/12/23 18:18?? 0.1?? 03/08/23?? 0.0?? Imm Gran Absolute?? 07/12/23 18:18?? 0.08?? 03/08/23?? 0.03? Coagulation?? LATEST RESULTS?? Prothrombin Time?? 07/12/23 18:54?? 9.9?? INR?? 07/12/23 18:54?? 1.0?? Partial Thromboplastin Time?? 07/12/23 18:54?? 23.3? Routine Chemistry?? LATEST RESULTS?? HISTORICAL RESULTS?? Sodium Level?? 07/12/23 18:42?? 136?? 06/21/23?? 138?? Potassium Level?? 07/12/23 18:42?? 3.5?? 06/21/23?? 4.6?? Chloride Level?? 07/12/23 18:42?? 101?? 06/21/23?? 101?? CO2?? 07/12/23 18:42?? 27?? 06/21/23?? 28?? Alk Phos?? 07/12/23 18:42?? 60?? 06/21/23?? 61?? AST?? 07/12/23 18:42?? 19?? 06/21/23?? 15?? ALT?? 07/12/23 18:42?? 16 ??Low?? 06/21/23?? 15 ??Low?? BUN?? 07/12/23 18:42?? 14?? 06/21/23?? 15?? Glucose Level?? 07/12/23 18:42?? 110 ??High?? 06/21/23?? 99?? Creatinine Level?? 07/12/23 18:42?? 0.73?? 06/21/23?? 0.76?? BUN/Creat Ratio?? 07/12/23 18:42?? 19.2?? 06/21/23?? 19.7?? eGFR CKD-EPI?? 07/12/23 18:54?? 98?? 06/21/23?? 97?? Calcium Level?? 07/12/23 18:42?? 8.9?? 06/21/23?? 9.5?? Protein Total?? 07/12/23 18:42?? 7.2?? 06/21/23?? 6.5?? Albumin Level?? 07/12/23 18:42?? 3.8?? 06/21/23?? 3.7?? Globulin?? 07/12/23 18:42?? 3.4?? 06/21/23?? 2.8?? A/G Ratio?? 07/12/23 18:42?? 1.1?? 06/21/23?? 1.3?? Bilirubin Total?? 07/12/23 18:42?? 0.5?? 06/21/23?? 0.4?? Anion Gap?? 07/12/23 18:42?? 8.0?? 06/21/23?? 9.0?? Osmolality?? 07/12/23 18:42?? 273 ??Low?? 06/21/23?? 277? Electronically Signed on 07/12/23 10:27 PM ILANA Dukes History and physical note * Mary Jo Bell APRN: PERFORM, MODIFY Event Display: History and Physical Authored Date: [id number] RADHA ECHEVERRIA :1955 Age:68 years Sex:Male Visit Date:07/12/2023 Primary Care Physician: ILANA Rhoades Chief Complaint pt reports started coughing up blood about an hour ago. Dx lung cancer. 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 He states he feels it is coming from??the back??of his throat and??does not feel??it is coming up from his lungs.?? No difficulty breathing, no changes??in his voice. No neck pain. No fevers/chills. No chest pain. No coughing prior to today. ?? Has been taking ibuprofen 800 mg TID. ?? His last radiation was a month ago. He sustained radiation priset to his chest and neck, with peeling skin on his neck, which has since resolved. ?? On arrival he was found to be hypoxic,??room air saturations 82%.?? Responding well to low-flow nasal cannula. ?? (07/12/2023 19:[address] Angio Chest) IMPRESSION:?? 1. ?? No evidence of acute pulmonary embolism.?? 2. ?? Compared to the prior CT chest dated 03/08/2023, significant interval??decrease in size of previously described right hilar mass or adenopathy.?Minimal residual soft tissue density anterior to the right main stem bronchus??with approximate 15 mm pretracheal/retrocaval lymph nodes. ?? 3. ?? Area of consolidation and/or atelectasis within the anteromedial right??upper lobe.?? 4. ?? A few scattered small faint patches of infiltrate within the right lung.?? 5. ?? Previously described 7 mm nodule within the medial right upper lobe ?? (07/12/2023 19:[address] Neck Soft Tissue w/ Contrast) IMPRESSION:?? 1. ?? Moderate thickening of the true and false vocal cords level of the hyoid?? with airway narrowing consider direct or indirect laryngoscopy follow-up.?? 2. ?? Large left submandibular gland calcification at left proximal?? submandibular duct stone with subsequent at atrophic left submandibular gland.?? 3. ?? 5 x 6 mm subsolid nodule posterior aspect right upper lobe. ??Follow-up per??pulmonology an ENT. 4. ?? Prominent right 12 x 12 mm lymph the node.? Hgb 11.7, stable from 11.6 a week ago.??WBC 8.4, up from 2.1 3 weeks ago. Normal electrolytes, normal renal function. ?? [facility] ENT was consulted by ED provider who spoke with??Dr. Clarke from [facility] regarding the CT neck??findings and sensation of bleeding from the throat on this patient. ??ENT felt that there was not any acute procedure that would warrant emergent transfer and deferring treatment tonight. ??She felt that the fact that the vocal cords were very symmetric that this could be just a manifestation of the phase of the CAT scan study itself. ??As patient does not have stridor or difficulty speaking or breathing she felt that emergent transfer was not indicated.? Review of Systems Constitutional: No fevers, chills, sweats, or unintentional weight loss Eye: No visual disturbances ENNT: No ear pain, nasal congestion, stiff neck, or sore throat Respiratory: New onset of coughing blood. No shortness of breath. No stridor. Cardiovascular: No chest pain, palpitations, or syncope Gastrointestinal: No nausea, vomiting, diarrhea, dark or bloody stools, constipation,??or anorexia Genitourinary: No hematuria, burning or frequency Paul/Lymph: No bruising tendency or swollen lymph glands Endocrine: No excessive thirst/hunger or heat/cold intolerance Musculoskeletal: Baseline generalized joint pain, no decreased range of motion Integumentary: No rash, pruritus, abrasions or ulcerations Neurologic: No confusion, speech/swallow difficulty, or limb weakness/paralysis Psychiatric: No anxiety, depression, or suicide/homicide ideation ?? Physical Exam Vitals & Measurements T:??36.7?C ??(Oral)?? TMIN:??36.6?C ??(Temporal Artery)?? TMAX:??36.7?C ??(Oral)?? HR:??108??(Peripheral)?? RR:??18?? BP:??124/83?? SpO2:??92%?? HT:??176.500??cm?? WT:??90.400??kg?? BMI:??29.020?? Pain Score:??0?? O2 Flow Rate:??2?? O2 Therapy:??Nasal cannula?? General: Alert and oriented, in no acute distress Eye: PERRL, EOMI, normal conjunctiva, no scleral icterus HENT: Normocephalic, moist oral mucosa Neck: Supple, non-tender, negative for carotid bruits, JVD, and lymphadenopathy Lungs: Clear to auscultation,?? diminished sounds and egophony in right middle lung field,??non-labored respirations Heart: Normal rate, regular rhythm, no murmur, rub, gallop, S3 or S4 Peripheral: Pulses 3+ and symmetric, cap refill < 3 secs, no edema, no calf tenderness Abdomen: Soft, non-tender, rotund, normal bowel sounds, no rebound, guarding, or masses Musculoskeletal: Normal range of motion and strength Skin: [place], warm, dry, no rashes, lesions or discolorations Neurologic: Awake, alert and oriented X4, CN II-XII intact, motor and sensory intact Psychiatric: Cooperative, appropriate mood and affect ? Assessment/Plan 1.??Coughing blood??R04.2 No airway compromise. Diminishing amounts of hemoptysis. Vocal cord CT findings reviewed with [facility] oncology and ENT. Mild esophagitis on CT. See comments in HPI. ?? Hold NSAIDS. PPI. ?? CBC in am. ?? 2.??Pneumonia??J18.9 PCN allergy with anaphylaxis. Levaquin started in the setting of recent chemo, hypoxia, and consolidations seen on CT. Follow up blood cultures. O2 supplementation. Incentive spirometry. Mucinex. ? Full code ?? DVT prophy - no chemoprophylaxis, encourage ambulation ?? Orders: acetaminophen, 650 mg = 2 tab, Oral, Tab, every 6 hr, PRN pain, mild, First Dose: 07/13/23 1:15:00 EDT, Routine Mucinex, 1,200 mg = 2 tab, Oral, Tab-ER, BID for 30 days, First Dose: 07/13/23 9:00:00 EDT, Stop Date: 08/12/23 8:59:00 EDT, Physician Stop, Routine levoFLOXacin, 750 mg = 1 tab, Oral, Tab, Daily, Antibiotic Indication Pneumonia, First Dose: 07/13/23 2:00:00 EDT, Routine Basic Metabolic Panel, Blood, Routine, 07/13/23 1:16:00 EDT, Daily, for 3 days, Lab Collect Blood Culture, Periph Bld, Arm R, Routine collect, RT - Routine, 07/13/23 0:58:00 EDT, Once, Lab Collect, Print Label Blood Culture, Periph Bld, Routine collect, RT - Routine, 07/13/23 0:58:00 EDT, Once, Lab Collect, Print Label CBC w/ Diff, Blood, Routine, 07/13/23 1:16:00 EDT, Daily, for 3 days, Lab Collect Diet Order, 07/13/23 1:15:00 EDT, Regular Incentive Spirometry Nursing, 07/13/23 1:15:00 EDT Oxygen Therapy, SpO2 goal 92% or greater, Stop date 07/13/23 1:15:00 EDT Patient Condition, 07/13/23 1:15:00 EDT, Condition Good/ Stable PSO Admit to Inpatient, [facility], Inpatient, Tarik CHERY, Yeison Mena, 07/13/23 0:50:00 EDT, 07/13/23 0:50:00 EDT, 07/13/23 0:50:00 EDT, Less than 96 hours Resuscitation Status, 07/13/23 1:15:00 EDT, Full Code Up ad Julita, 07/13/23 1:15:00 EDT, Constant Order, at nurse's discretion, 07/13/23 1:15:00 EDT Vital Signs, 07/13/23 1:15:00 EDT, QID Images X-Ray:?? Computed Tomography: ?? CT Angio Chest ?? 07/12/23 18:56:35 PROCEDURE INFORMATION: Exam: CTA Chest With Contrast Exam date and time: 07/12/2023 6:56 PM Age: 68 years old Clinical indication: Shortness of breath ?? TECHNIQUE: Imaging protocol: Computed tomographic angiography of the chest with contrast. Exam focused on the arteries. 3D rendering (Not supervised by radiologist): MIP and/or 3D reconstructed images were created by the technologist. Radiation optimization: All CT scans at this facility use at least one of these dose optimization techniques: automated exposure control; mA and/or kV adjustment per patient size (includes targeted exams where dose is matched to clinical indication); or iterative reconstruction. Contrast material: ISOVUE 370; Contrast volume: 100 ml; Contrast route: INTRAVENOUS (IV); ?? REPORTING DATA: Count of CT and Cardiac NM exams in prior 12 months: This patient has received 2 known CTs and 0 known cardiac nuclear medicine studies in the 12 months prior to the current study. ?? COMPARISON: CT CHEST W CONTRAST 03/08/[address] chest, abdomen, pelvis 08/13/2021 ?? FINDINGS: Pulmonary arteries: No evidence of acute pulmonary embolism. Aorta: Normal caliber thoracic aorta without dissection or aneurysm. ?? Lungs: Area of consolidation and/or atelectasis within the anteromedial right upper lobe. A few scattered small faint patches of infiltrate within the right lung. Previously described 7 mm nodule within the medial right upper lobe (examination dated 03/08/2023) now measures 5 mm on axial image 42, series 5. Interval new 4.5 mm nodule posterior right upper lobe (image 44, series 5). Interval new 4 mm nodule in the anterolateral right lung (image 84, series 5). Compared to the prior CT chest dated 03/08/2023, significant interval decrease in size of previously described right hilar mass or adenopathy. Minimal residual soft tissue density anterior to the right main stem bronchus with approximate 15 mm pretracheal/retrocaval lymph nodes Pleural spaces: No pleural fluid collection. No pneumothorax. Heart: No right ventricular strain. No pericardial effusion. Lymph nodes: Compared to the prior CT chest dated 03/08/2023, significant interval decrease in size of previously described right hilar mass or adenopathy. Minimal residual soft tissue density anterior to the right main stem bronchus with approximate 15 mm pretracheal/retrocaval lymph nodes. ?? Liver: Compared to a prior CT chest with contrast dated 03/08/2023 and 08/13/2021, stable hypodensity within the anterior right lobe of the liver - previously thought to represent a benign hemangioma. Compared to CT chest dated 03/08/[address] abdomen/pelvis dated 08/13/2021, stable hypodensity within the central right lobe of the liver. Gallbladder and bile ducts: Cholelithiasis. Kidneys and ureters: Superomedial left renal cortical stable benign cyst. No follow-up imaging is recommended. Bones/joints: Spinal degenerative changes. Soft tissues: Unremarkable. ?? IMPRESSION: 1. No evidence of acute pulmonary embolism. 2. Compared to the prior CT chest dated 03/08/2023, significant interval decrease in size of previously described right hilar mass or adenopathy. Minimal residual soft tissue density anterior to the right main stem bronchus with approximate 15 mm pretracheal/retrocaval lymph nodes. 3. Area of consolidation and/or atelectasis within the anteromedial right upper lobe. 4. A few scattered small faint patches of infiltrate within the right lung. 5. Previously described 7 mm nodule within the medial right upper lobe (examination dated 03/08/2023) now measures 5 mm on axial image 42, series 5. Interval new 4.5 mm nodule posterior right upper lobe (image 44, series 5). Interval new 4 mm nodule in the anterolateral right lung (image 84, series 5). For patients at low risk (minimal or absent history of smoking and of other known risk factors), no routine follow-up is indicated. For patients at high risk (history of smoking or of other known risk factors), consider optional CT Chest at 12 months. (Reference: Hanna) ? REFERENCES: Hanna Oviedo, et al. Guidelines for Management of Incidental Pulmonary Nodules Detected on CT Images: From the Fleischner Society 2017. Radiology. 2017;284(1):228-243. ? THIS DOCUMENT HAS BEEN ELECTRONICALLY SIGNED BY NILS HERNANDEZ MD on 07/12/2023 07:46 PM ?? Signed By: Nils Hernandez MD ?? CT Neck Soft Tissue w/ Contrast ?? 07/12/23 18:56:35 PROCEDURE INFORMATION: Exam: CT Neck With Contrast Exam date and time: 07/12/2023 6:56 PM Age: 68 years old Clinical indication: Other: Hemoptisis; Additional info: Hemoptysis ?? TECHNIQUE: Imaging protocol: Computed tomography of the neck with contrast. Radiation optimization: All CT scans [...] prior 12 months: This patient has received 2 known CTs and 0 known cardiac nuclear medicine studies in the 12 months prior to the current study. ?? COMPARISON: CT CHEST W CONTRAST 03/08/2023 5:39 PM ?? FINDINGS: Tubes, catheters and devices: Indwelling left chest port present. ?? Mastoid air cells: Poorly pneumatized mastoid air cells bilaterally. Paranasal sinuses: Minimal bilateral ethmoid sinus disease. Pharynx: Unremarkable. No significant tonsillar enlargement. Larynx: The there is mild thickening of the junction of the true and false vocal cords with pinpoint subglottic airway level of the hyoid and infrahyoid. Prevertebral and retropharyngeal spaces: The prominent prevertebral osteophytes are noted at C3-C4 C4-C5 subsequent metallic plate present. Salivary glands: Large ossification of the left submandibular gland with atrophy and edema 16 x 11 mm calcification in the probable obstructed left submandibular duct chronic fashion. Thyroid: Normal. No enlarged or calcified nodules. Lymph nodes: Prominent right paratracheal 12 x 12 mm lymph node. Minimal reactive adenopathy noted. ?? Trachea: Visualized trachea is unremarkable. Lungs: Mild central bronchial thickening and dilatation right upper lung. Subsolid small 5 x 6 mm possible lung nodule or other process. Esophagus: Mild proximal esophagitis noted. Bones/joints: Postop ACDF at C5-C6 7 with fusion of the associated disc spaces. Moderate the a changes temporomandibular joint. Vasculature: Left vertebral artery appears dominant. Mild calcification of the vertebrobasilar artery. There is mild atherosclerotic calcification of the carotid arteries. The aorta demonstrates moderate atherosclerotic calcification. Soft tissues: Unremarkable. No significant soft tissue swelling. ?? IMPRESSION: 1. Moderate thickening of the true and false vocal cords level of the hyoid with airway narrowing consider direct or indirect laryngoscopy follow-up. 2. Large left submandibular gland calcification at left proximal submandibular duct stone with subsequent at atrophic left submandibular gland. 3. 5 x 6 mm subsolid nodule posterior aspect right upper lobe. Follow-up per pulmonology an ENT. 4. Prominent right 12 x 12 mm lymph the node. ? THIS DOCUMENT HAS BEEN ELECTRONICALLY SIGNED BY SONNY HULL MD on 07/12/2023 07:48 PM ?? Signed By: Sonny Hull MD Ultrasound:?? MRI:?? Echo:?? Nuclear Medicine:?? Mammography:? Bone Densitometry:?? Problem List/Past Medical History Ongoing No qualifying data Historical No qualifying data Medications Inpatient acetaminophen, 650 mg= 2 tab, Oral, every 6 hr, PRN levoFLOXacin, 750 mg= 1 tab, Oral, Daily Mucinex, 1200 mg= 2 tab, Oral, BID Home amLODIPine, 10 mg, Oral, Daily hydrOXYzine, 25 mg, Oral, every night at bedtime ibuprofen 800 mg oral tablet, 800 mg= 1 tab, Oral, TID losartan 100 mg oral tablet, 50 mg, Oral, Daily Multi Vitamin+, 1 tab, Oral, Daily tamsulosin 0.4 mg oral capsule, 0.8 mg= 2 cap, Oral, Daily Allergies penicillins Social History Electronic Cigarette/Vaping Electronic Cigarette Use: Never. Tobacco Former tobacco user Tobacco Use:. Lab Results Test Name Test Result Date/Time WBC 8.4 K/mcL 07/12/2023 18:18 EDT RBC 3.86 Million/mcL 07/12/2023 18:18 EDT Hgb 11.7 g/dL 07/12/2023 18:18 EDT Hct 35.6 % 07/12/2023 18:18 EDT MCV 92.2 fL 07/12/2023 18:18 EDT MCH 30.3 pg 07/12/2023 18:18 EDT MCHC 32.9 g/dL 07/12/2023 18:18 EDT RDW-CV 14.6 % 07/12/2023 18:18 EDT Platelets 226 K/mcL 07/12/2023 18:18 EDT MPV 10.1 fL 07/12/2023 18:18 EDT Neutro Auto 59.0 % 07/12/2023 18:18 EDT Lymph Auto 20.8 % 07/12/2023 18:18 EDT [place] Auto 15.6 % 07/12/2023 18:18 EDT Eos, Auto 2.90 % 07/12/2023 18:18 EDT Basophil Auto 0.7 % 07/12/2023 18:18 EDT Imm Gran Auto 1.0 % 07/12/2023 18:18 EDT Neutro Absolute 5.0 K/mcL 07/12/2023 18:18 EDT Lymph Absolute 1.8 K/mcL 07/12/2023 18:18 EDT [place] Absolute 1.3 K/mcL 07/12/2023 18:18 EDT Eos Absolute 0.2 K/mcL 07/12/2023 18:18 EDT Baso Absolute 0.1 K/mcL 07/12/2023 18:18 EDT Imm Gran Absolute 0.08 07/12/2023 18:18 EDT Prothrombin Time 9.9 seconds 07/12/2023 18:54 EDT INR 1.0 07/12/2023 18:54 EDT Partial Thromboplastin Time 23.3 seconds 07/12/2023 18:54 EDT Sodium Level 136 mmol/L 07/12/2023 18:42 EDT Potassium Level 3.5 mmol/L 07/12/2023 18:42 EDT Chloride Level 101 mmol/L 07/12/2023 18:42 EDT CO2 27 mmol/L 07/12/2023 18:42 EDT Alk Phos 60 IntlUnit/L 07/12/2023 18:42 EDT AST 19 IntlUnit/L 07/12/2023 18:42 EDT ALT 16 IntlUnit/L 07/12/2023 18:42 EDT BUN 14 mg/dL 07/12/2023 18:42 EDT Glucose Level 110 mg/dL 07/12/2023 18:42 EDT Creatinine Level 0.73 mg/dL 07/12/2023 18:42 EDT BUN/Creat Ratio 19.2 07/12/2023 18:42 EDT eGFR CKD-EPI 98 mL/min/1.73 m2 07/12/2023 18:54 EDT Calcium Level 8.9 mg/dL 07/12/2023 18:42 EDT Protein Total 7.2 g/dL 07/12/2023 18:42 EDT Albumin Level 3.8 g/dL 07/12/2023 18:42 EDT Globulin 3.4 g/dL 07/12/2023 18:42 EDT A/G Ratio 1.1 g/dL 07/12/2023 18:42 EDT Bilirubin Total 0.5 mg/dL 07/12/2023 18:42 EDT Anion Gap 8.0 07/12/2023 18:42 EDT Osmolality 273 mOsm/kg 07/12/2023 18:42 EDT Electronically Signed on 07/13/23 06:27 AM Mary Jo Bell APRN Discharge summary * Tarik CHERY, Yeison Mena: PERFORM Event Display: Discharge Summary Authored Date: [id number] RADHA ECHEVERRIA :1955 Age:68 years Sex:Male Visit Date:07/12/2023 Primary Care Physician: ILANA Rhoades [facility] Course 68-year-old male with history of small cell lung cancer recently finished radiation and chemotherapy presented with??some hemoptysis along with??a pneumonia seen on imaging.?? GI ruled out pulmonary embolus, [facility] ENT and oncology were consulted did not feel there was any inpatient need??in regards to the hemoptysis??which seems to be related to sloughing around the neck where he received radiation.?? He did have some evidence of pneumonia a little bit of hypoxia on arrival??requiring 4 L of oxygen which??rapidly improved really??with minimal treatment other antibiotics.?? He is on room air now the past 8 hours??feels well and would strongly like to go home, lives less than 5 minutes from the hospital??so will discharge home with Levaquin with??return precautions discussed??and follow-up with oncology as already arranged. Physical Exam Vitals & Measurements T:??36.5?C ??(Temporal Artery)?? TMIN:??36.5?C ??(Temporal Artery)?? TMAX:??36.7?C ??(Oral)?? HR:??77??(Peripheral)?? RR:??18?? BP:??165/73?? SpO2:??98%?? HT:??176.500??cm?? WT:??90.400??kg?? BMI:??29.020?? Pain Score:??0?? O2 Flow Rate:??2?? O2 Therapy:??Room air?? General:??Alert and oriented, well nourished, No acute distress Eye:??PERRL, EOMI, normal conjunctiva Lungs:??Clear to auscultation and percussion, Non-labored respiration Heart:??Normal rate, Normal rhythm, No murmur, No gallop Abdomen:??Soft, non-tender, non-distended, normal bowel sounds, no masses Social History Electronic Cigarette/Vaping Electronic Cigarette Use: Never. Home/Environment Lives with Spouse. Living situation: Home/Independent. Tobacco Former tobacco user Tobacco Use:. Discharge Plan 1.??Coughing blood??R04.2 Small amounts??little bit of??dried blood and sputum at this point today??no gross hemoptysis Ordered: Discharge Patient, 07/13/23 11:11:00 EDT ?? 2.??Pneumonia??J18.9 Levaquin??5 more days at home Ordered: Discharge Patient, 07/13/23 11:11:00 EDT ?? 3.??Small cell lung cancer??C34.90 In remission per patient ?? Orders: levoFLOXacin 750 mg oral tablet, 750 mg = 1 tab, Oral, Daily, # 5 tab, 0 Refill(s), Pharmacy: [facility], 176.5, cm, 07/13/23 2:13:00 EDT, Height/Length Dosing, 90.4, kg, 07/13/23 2:13:00EDT, Weight Dosing Adjustment Observation, 07/13/23 0:50:00 EDT, Observation, Observation, 07/13/23 11:08:00 EDT, 07/13/23 11:08:[address] in Observation, Observation, Observation, 07/13/23 11:08:00 EDT, 07/13/23 11:08:00 EDT, 07/13/23 11:08:00 EDT, Less than 96 hours All Diagnoses This Visit Coughing blood Pneumonia Small cell lung cancer Patient Education Community-Acquired Pneumonia, Adult Follow Up With When Contact Information ILANA Rhoades Within 1 month [address] [place] [address]- Additional Instructions: Medication Reconciliation New Prescription levoFLOXacin (levoFLOXacin 750 mg oral tablet)1 tab Oral (given by mouth) every day for 5 Days. Refills: 0. ?? Unchanged [id number] Milligrams Oral (given by mouth) every day. ?? [id number] Milligrams Oral (given by mouth) every night at bedtime. ?? losartan (losartan 100 mg oral tablet)50 Milligrams Oral (given by mouth) every day. ?? multivitamin (Multi Vitamin+)1 tab Oral (given by mouth) every day. ?? tamsulosin (tamsulosin 0.4 mg oral capsule)2 Capsules Oral (given by mouth) every day. ?? Discontinued ibuprofen (ibuprofen 800 mg oral tablet)1 tab Oral (given by mouth) 3 times a day. Electronically Signed on 07/13/23 11:15 AM Yeison Montanez MD Patient Care team information Care Team Personnel Name: ILANA Rhoades Position: Physician Member Role: Primary Care Physician Address: Address: [address] [place] [address] Name: Guevara Ibarra MD Position: Physician Member Role: Informed Provider Address: Address: [address] [address] Name: Grant Castro Position: Nurse Member Role: ED Nurse Name: ILANA Dukes Position: Physician Member Role: Physician Address: Address: [address] [place] [address] Care Team Related Persons Name: NEYMAR ECHEVERRIA Address: Home
[2023-09-20 09:49] LABS: Abs Immature Grans 0.09 10^3/uL (0.0-0.06); Absolute Eosinophil Count 0.07 10^3/uL (0.0-0.7); Absolute Lymphocyte Count 0.71 10^3/uL (1.2-3.4); Absolute Monocyte Count 0.88 10^3/uL (0.1-0.8); Absolute Neutrophil Count 11.37 10^3/uL (1.2-6.7); Basophils % 0.2; Eosinophils % 0.5; HCT 36.1 % (40.0-50.0); HGB 12.1 g/dL (13.5-17.5); Immature Grans % 0.7; Lymphocytes % 5.4; MCH 26.5 pg (27.0-33.0); MCHC 33.5 % (32.0-36.0); MCV 79 fL (80-95); MPV 8.1 fL (8.0-11.0); Monocytes % 6.7; Neutrophils % 86.5; Platelet Count 165 10^3/uL (130-400); RBC 4.57 10^6/uL (4.36-5.78); RDW-SD 45.6 fL; WBC 13.14 10^3/uL (4.4-10.8)
[2023-09-20 09:52] LABS: Absolute Basophil Count 0.03 10^3/uL (0.0-0.2)
--- OUTSIDE RECORDS SUMMARY | 2023-09-20 09:54 | XMS_ITS | Patient Health Record ---
Author Name Unknown [facility] Address [address] [place] [address] Care Team Providers Care Manager Video Name Role Phone SANJEEV CARVER Primary Care Provider CynthiaSandor Billy [phone] ALLERGIES Allergen (clinical drug ingredient) Drug/Non Drug Allergy documented on EMR Reaction Allergy Type Onset Date Status Penicillin G Benzathine Unknown Drug Allergy Active REASON FOR REFERRAL No Information MEDICATIONS Medication SIG (Take, Route, Frequency, Duration) Notes Start Date End Date Status Citalopram Hydrobromide 20 MG 1 tablet O rally Once a day for 30 day(s) Active Flomax 0.4 MG 1 capsule 30 minutes after the same meal each day Orally Once a day for 30 day(s) Active hydroCHLOROthiazide 25 MG 1 tablet in th e morning Orally Once a day for 30 day(s) Active Ibuprofen 800 MG 1 tablet with food o r milk as needed Orally Three times a day Active Lupron Depot (6-Month) 45 MG as directed Intramuscular Active Theragran-M - as directed Orally Active SOCIAL HISTORY Tobacco Use: Social History Observation Description Date Details (start date - stop date) Current Smoker NA - NA Sex Assigned At : Social History Observation Description Sex Assigned At Unknown SMOKING Question Answer Notes Are you a: current smoker Are you interested in quitting? Thinking about q uitting How many cigarettes a day do you smoke? 11-20 (1 /2 to 1 pack) How soon after you wake up d o you smoke your first cigarette? 6-30 min How often do you smoke cigarettes? 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 I think cancer treatment less likely. PLAN OF TREATMENT No Information Insurance Providers Payer Name Payer Address Payer Phone Subscriber Number Group Number Insured Name Patient Relationship to Insured Coverage Start Date Coverage End Date [facility] [address] [place] [id number] RADHA ECHEVERRIA Self - patient is the insured [place] [address] RADHA ECHEVERRIA Self - patient is the insured MEDICAL (GENERAL) HISTORY Medical History History ICD Code prostate cancer BPH with lower urinary tract symptoms depression hyperlipidemia hypertension generalized anxiety disorder nicotine dependence malignant neoplasm of prostate Surgical History Surgery Date(Month/Year) cervical fracture right knee arthroscopy shoulder arthroscopy hernia repair 06/18/14
[2023-09-20 09:59] LABS: ALT 28 U/L (16-63); AST 12 U/L (15-37); Albumin 3.1 g/dL (3.4-5.0); Alkaline Phosphatase 78 U/L (46-116); Anion Gap 7.7 mmol/L (3-11); BUN 16 mg/dL (7-18); Bilirubin, Total 0.4 mg/dL (0.2-1.0); CO2 27.3 mmol/L (21.0-32.0); CREATININE 0.8 mg/dL (0.70-1.30); Calcium 9.3 mg/dL (8.5-10.1); Chloride 89 mmol/L (98-107); Glucose 97 mg/dL (74-106); Potassium 3.9 mmol/L (3.5-5.1); Total Protein 6.9 g/dL (6.4-8.2)
[2023-09-20 10:02] LABS: Sodium 124 mmol/L (136-145)
== END 2023-10-14 23:59 | disposition home or self-care (01) ==
LOC: INF 09:31
PROVIDERS: Internal Medicine; PCP Family Medicine Adult Medicine; Visit Provider Internal Medicine Medical Oncology
DX: C34.92 Malignant neoplasm of unspecified part of left bronchus or lung (principal); Z79.818 Long term (current) use of other agents affecting estrogen receptors and estrogen levels
CPT/HCPCS: 36415; 80053; 85025